=== PATIENT | female | born 1980 | race Caucasian/White ===

== ENCOUNTER 2024-09-19 08:38 | Inpatient (IN) | payer OTHER, BC, MEDICAID, SELFPAY ==
[2024-09-19] VITALS (34 sets, daily range): BP systolic 120–166; BP diastolic 80–116; PULSE 69–104; RESP 13–22; TEMP 37–37.2; O2SAT 91–100
--- NOTE | 2024-09-19 08:48 | W.ED.PSYCHS ---
Documented by User: [email or web address] Ulrich 09/19/24 12:48 HPI - Psych General: Chief Complaint: Psychiatric Symptoms Stated Complaint: alcohol withdrawal, hallucinations Time Seen by Provider: 09/19/24 12:28 Source: patient Mode of arrival: EMS Limitations: no limitations History of Present Illness: Patient is a 44-year-old female presents to ED today via EMS for evaluation of paranoia and visual/auditory hallucinations. Patient tells me she feels like people are after her. Reportedly drove to a gas station to get away from them. Patient states she stopped drinking alcohol approximately 6 days ago. She feels like she might be withdrawing. She has no known history of schizophrenia. Reported previous drug use but nothing recently. She was reportedly having conversations with people in the ambulance that were not there. Patient is a diabetic. She states she normally takes Lantus in the mornings as well as a sliding scale insulin. She has not had these medications in two days. According to EMS, her blood sugars were over 400 upon arrival. She states she has not slept in many days. MD complaint: altered mental status Onset (ago): day(s) Duration: constant Relieving factors: none Exacerbating factors: none Associated psychiatric symptoms: auditory hallucinations and visual hallucinations Associated symptoms: Reports auditory hallucinations and visual hallucinations; Deny depression, homicidal ideation or suicidal ideation Treatments prior to arrival: none Related Data Home Medications Medication Instructions Recorded Confirmed atenolol 50 mg tablet 50 mg PO DAILY 04/19/21 09/19/24 gabapentin 600 mg tablet 600 mg PO TID 04/19/21 09/19/24 atorvastatin 10 mg tablet 10 mg PO DAILY 09/19/24 09/19/24 insulin glargine 100 unit/mL (3 25 unit SUBCUT DAILY 09/19/24 09/19/24 mL) subcutaneous pen (Lantus Solostar U-100 Insulin) insulin lispro 100 unit/mL See Rx Instructions .Route .COMPLEX 09/19/24 09/19/24 subcutaneous pen (Humalog KwikPen (U-100) Insulin) lisinopril 2.5 mg tablet 2.5 mg PO DAILY 09/19/24 09/19/24 Allergies Allergy/AdvReac Type Severity Reaction Status Date / Time No Known Allergies Allergy Verified 05/18/21 09:20 Review of Systems Const: Denies: fever(s) or chills Card: Denies: chest pain, palpitations, lightheadedness or syncope Resp: Denies: dyspnea GI: Denies: abdominal pain, nausea, vomiting or diarrhea Skin/Breast: Denies: rash Neuro: Denies: headache(s) Psych: Reports: paranoia, visual hallucinations and auditory hallucinations; Denies: anxiety, depression, hopelessness, suicidal ideation or homicidal ideation PFS ED PFSH: Medical History Hepatitis C Type 4 with normal LFTs. Social History Smoking and tobacco/nicotine status: current every day tobacco/nicotine user Alcohol intake: current Alcohol intake frequency: holidays/special occasions only Adopted: No Marital status: Single Number of children: 1 service: No Physical Exam Const: COMMON NORMALS: no acute distress, average body habitus, patient oriented x3, no limitations, healthy appearing, alert and well nourished GENERAL APPEARANCE: cooperative ORIENTATION/CONSCIOUSNESS: Yes awake, Yes oriented to person, Yes oriented to place and Yes oriented to time Resp: COMMON NORMALS: normal respiratory effort and clear to auscultation bilaterally AUSCULTATION: clear to auscultation bilaterally Cardio: COMMON NORMALS: regular rate and regular rhythm RATE: regular rate RHYTHM: regular rhythm Neuro: COMMON NORMALS: patient oriented x3 SENSORIUM/ORIENTATION: Yes alert, Yes oriented to person, Yes oriented to place and Yes oriented to time Psych: COMMON NORMALS: mental status grossly normal, cooperative, normal affect, speech normal, activity/motor behavior normal, denies homicidal ideation and denies suicidal ideation APPEARANCE: Yes grossly normal ATTITUDE: Yes calm ACTIVITY/MOTOR BEHAVIOR: No psychomotor agitation SPEECH: Yes normal speech MOOD & AFFECT: Yes euthymic mood ATTENTION/CONCENTRATION: Yes attention grossly impaired and Yes concentration grossly impaired MEMORY/COGNITION: Yes memory grossly intact INSIGHT: Fair insight present (Psych) JUDGEMENT: Limited judgement present (Psych) Skin: COMMON NORMALS: no rashes or lesions noted GENERAL SKIN EXAM: no rashes or lesions noted Course Consultations: Consultation #1: Dr. Grant-accepts hospitalization Consultation #2: Dr. Dang-will consult on patient while in hospital Vital Signs: Vital signs: Vital Signs Temperature 98.9 F 09/19/24 08:39 Pulse Rate 77 09/19/24 11:23 Respiratory Rate 18 09/19/24 11:23 Blood Pressure 148/102 09/19/24 11:23 Pulse Oximetry 99 09/19/24 11:23 Oxygen Delivery Me thod Room Air 09/19/24 11:23 [facility] - Psych Medical Decision Making Patient is a 44-year-old female here for acute psychosis. She reportedly has no history of schizophrenia. She denies drug use. Her UDS is negative. She does report quitting alcohol approximately 6 days ago. On her blood work today she is anemic with hemoglobin of 8.3. She denies any black or tarry stools. She has no abdominal pain. Initial CMP with hypokalemia at 1.5 as well as hypocalcemia at 4.9. This was rechecked for accuracy. On repeat CMP her calcium has normalized but her potassium is still 1.9. She does have EKG changes. Her mag was 1.4. She was given IV replacement of these. Mild elevations of her LFTs consistent with her known alcohol abuse. Blood sugars were over 500 upon arrival. These are now down in the 200s after fluids and insulin. DDx includes metabolic encephalopathy, alcoholic withdrawal psychosis, new onset mental illness, etc. Spoke to Dr. De Oliveira and she will be medical admit with psych to consult. Chart reviewed and patient discussed with midlevel. Agree with assessment and plan. Differential Diagnosis Likely acute psychosis Medical Records I reviewed the patient's medical records. Lab Data I reviewed the patient's lab results. 09/19/24 10:04 09/19/24 11:44 Laboratory Results WBC 4.53 10^3/uL (3.29-11.43) 09/19/24 10:04 RBC 2.83 10^6/uL (3.85-5.65) L 09/19/24 10:04 Hgb 8.30 g/dL (11.27-16.99) L 09/19/24 10:04 Hct 25.1 % (36-47) L 09/19/24 10:04 MCV 88.7 fl (85-98) 09/19/24 10:04 MCH 29.3 pg (27-33) 09/19/24 10:04 MCHC 33.1 g/dL (30-55) 09/19/24 10:04 RDW 14.6 % (12.1-15.1) 09/19/24 10:04 Plt Count 84 10^3/cmm (157-399) L 09/19/24 10:04 MPV 11.1 fL (7.4-10.4) H 09/19/24 10:04 Neut % (Auto) 59.5 % 09/19/24 10:04 Lymph % (Auto) 28.9 % 09/19/24 10:04 [place] % (Auto) 10.4 % 09/19/24 10:04 Eos % (Auto) 0.4 % 09/19/24 10:04 Baso % (Auto) 0.4 % 09/19/24 10:04 Neut # (Auto) 2.69 10^3/uL (1.8-7.7) 09/19/24 10:04 Lymph # (Auto) 1.3 10^3/uL (0.8-4.8) 09/19/24 10:04 [place] # (Auto) 0.5 10^3/uL (0.2-0.9) 09/19/24 10:04 Eos # (Auto) 0.0 10^3/uL (0.0-0.8) 09/19/24 10:04 Baso # (Auto) 0.0 10^3/uL (0.0-0.1) 09/19/24 10:04 Nucleated RBC % (auto) 0 % 09/19/24 10:04 Nucleated RBCs # 0.0 /100WBC 09/19/24 10:04 PT 18.90 SECONDS (12.1-14.9) H 09/19/24 10:04 INR 1.53 (0.8-1.2) H 09/19/24 10:04 APTT 35.4 SECONDS (23.9-36.7) 09/19/24 10:04 Sodium 136 mmol/L (136-145) 09/19/24 11:44 Potassium 1.9 mmol/L (3.5-5.1) L* D 09/19/24 11:44 Chloride 92 mmol/L (98-107) L 09/19/24 11:44 Carbon Dioxide 29 mmol/L (22-29) 09/19/24 11:44 Anion Gap 16.9 (5-19) 09/19/24 11:44 BUN 10 mg/dL (6-20) 09/19/24 11:44 Creatinine 0.6 mg/dL (0.5-0.9) 09/19/24 11:44 GFR Calculation 109.6 mL/min (90-130) 09/19/24 11:44 Glucose 89 mg/dL (65-115) 09/19/24 11:44 POC Glucose 209 mg/dL (70-110) H 09/19/24 09:50 Calculated Osmolality 281 mOsm/kg (285-295) L 09/19/24 11:44 Calcium 8.7 mg/dL (8.5-10.5) 09/19/24 11:44 Phosphorus 1.7 mg/dL (2.5-4.5) L 09/19/24 11:44 Magnesium 1.4 mg/dL (1.7-2.3) L 09/19/24 11:44 Total Bilirubin 1.1 mg/dL (0.15-1.2) 09/19/24 11:44 AST 65 U/L (0-32) H 09/19/24 11:44 ALT 36 U/L (0-33) H 09/19/24 11:44 Alkaline Phosphatase 163 U/L (35-105) H 09/19/24 11:44 Troponin T Baseline 9 ng/L (0-10) 09/19/24 11:11 Total Protein 7.1 g/dL (6.6-8.7) D 09/19/24 11:44 Albumin 3.9 g/dL (3.5-5.2) 09/19/24 11:44 Globulin 3.2 g/dL (1.3-4.6) 09/19/24 11:44 HCG, Qual Negative (Negative) 09/19/24 10:04 Salicylates 0.7 mg/dL (3-10) L 09/19/24 10:04 Urine Opiates Screen Negative ng/mL (Negative) 09/19/24 08:52 Acetaminophen < 5.0 ug/mL (10-30) L 09/19/24 10:04 Ur Barbiturates Screen Negative ng/mL (Negative) 09/19/24 08:52 Ur Phencyclidine Scrn Negative ng/mL (Negative) 09/19/24 08:52 Ur Amphetamines Screen Negative ng/mL (Negative) 09/19/24 08:52 U Benzodiazepines Scrn Negative ng/mL (Negative) 09/19/24 08:52 Urine Cocaine Screen Negative ng/mL (Negative) 09/19/24 08:52 U Marijuana (THC) Screen Negative ng/mL (Negative) 09/19/24 08:52 Ethyl Alcohol < 10 mg/dL (0-10) 09/19/24 10:04 Serum Ketones Negative (Negative) 09/19/24 10:04 No radiology studies performed this visit Discharge Plan Discharge Patient Disposition: Admitted As Inpatient Clinical Impression: Acute psychosis, Chronic alcohol use, Hypomagnesemia, Hypokalemia Diabetes mellitus with hyperglycemia Qualifiers: Diabetes mellitus type: type 2 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: with termite control servicer use Qualified Code(s): E11.65 - Type 2 diabetes mellitus with hyperglycemia Condition: Stable Coding Level of Care Code ED Account Maintenance Representative for Chg Fwd Documented by User: Lauri De Oliveira DO 09/19/24 12:36 HPI - Psych General: Chief Complaint: Psychiatric Symptoms Stated Complaint: alcohol withdrawal, hallucinations Time Seen by Provider: 09/19/24 12:28 Related Data Home Medications Medication Instructions Recorded Confirmed atenolol 50 mg tablet 50 mg PO DAILY 04/19/21 09/19/24 gabapentin 600 mg tablet 600 mg PO TID 04/19/21 09/19/24 atorvastatin 10 mg tablet 10 mg PO DAILY 09/19/24 09/19/24 insulin glargine 100 unit/mL (3 25 unit SUBCUT DAILY 09/19/24 09/19/24 mL) subcutaneous pen (Lantus Solostar U-100 Insulin) insulin lispro 100 unit/mL See Rx Instructions .Route .COMPLEX 09/19/24 09/19/24 subcutaneous pen (Humalog KwikPen (U-100) Insulin) lisinopril 2.5 mg tablet 2.5 mg PO DAILY 09/19/24 09/19/24 Allergies Allergy/AdvReac Type Severity Reaction Status Date / Time No Known Allergies Allergy Verified 05/18/21 09:20 PFS ED PFS: Medical History Hepatitis C Type 4 with normal LFTs. Social History Smoking and tobacco/nicotine status: current every day tobacco/nicotine user Alcohol intake: current Alcohol intake frequency: holidays/special occasions only Adopted: No Marital status: Single Number of children: 1 service: No Course Vital Signs: Vital signs: Vital Signs Temperature 98.9 F 09/19/24 08:39 Pulse Rate 77 09/19/24 11:23 Respiratory Rate 18 09/19/24 11:23 Blood Pressure 148/102 09/19/24 11:23 Pulse Oximetry 99 09/19/24 11:23 Oxygen Delivery Me thod Room Air 09/19/24 11:23 MDM - Psych Medical Decision Making Patient is a 44-year-old female here for acute psychosis. She reportedly has no history of schizophrenia. She denies drug use. Her UDS is negative. She does report quitting alcohol approximately 6 days ago. On her blood work today she is anemic with hemoglobin of 8.3. She denies any black or tarry stools. Initial CMP with hypokalemia at 1.5 as well as hypocalcemia at 4.9. This was rechecked for accuracy. On repeat CMP her calcium has normalized but her potassium is still 1.9. She does have EKG changes. Her mag was 1.4. She was given IV replacement of these. Mild elevations of her LFTs consistent with her known alcohol abuse. Blood sugars were over 500 upon arrival. These are now down in the 200s after fluids and insulin. DDx includes metabolic encephalopathy, alcoholic withdrawal psychosis, new onset mental illness, etc. Spoke to Dr. De Oliveira and she will be medical admit with psych to consult. Chart reviewed and patient discussed with midlevel. Agree with assessment and plan. Lab Data 09/19/24 10:04 09/19/24 11:44 Laboratory Results WBC 4.53 10^3/uL (3.29-11.43) 09/19/24 10:04 RBC 2.83 10^6/uL (3.85-5.65) L 09/19/24 10:04 Hgb 8.30 g/dL (11.27-16.99) L 09/19/24 10:04 Hct 25.1 % (36-47) L 09/19/24 10:04 MCV 88.7 fl (85-98) 09/19/24 10:04 MCH 29.3 pg (27-33) 09/19/24 10:04 MCHC 33.1 g/dL (30-55) 09/19/24 10:04 RDW 14.6 % (12.1-15.1) 09/19/24 10:04 Plt Count 84 10^3/cmm (157-399) L 09/19/24 10:04 MPV 11.1 fL (7.4-10.4) H 09/19/24 10:04 Neut % (Auto) 59.5 % 09/19/24 10:04 Lymph % (Auto) 28.9 % 09/19/24 10:04 [place] % (Auto) 10.4 % 09/19/24 10:04 Eos % (Auto) 0.4 % 09/19/24 10:04 Baso % (Auto) 0.4 % 09/19/24 10:04 Neut # (Auto) 2.69 10^3/uL (1.8-7.7) 09/19/24 10:04 Lymph # (Auto) 1.3 10^3/uL (0.8-4.8) 09/19/24 10:04 [place] # (Auto) 0.5 10^3/uL (0.2-0.9) 09/19/24 10:04 Eos # (Auto) 0.0 10^3/uL (0.0-0.8) 09/19/24 10:04 Baso # (Auto) 0.0 10^3/uL (0.0-0.1) 09/19/24 10:04 Nucleated RBC % (auto) 0 % 09/19/24 10:04 Nucleated RBCs # 0.0 /100WBC 09/19/24 10:04 PT 18.90 SECONDS (12.1-14.9) H 09/19/24 10:04 INR 1.53 (0.8-1.2) H 09/19/24 10:04 APTT 35.4 SECONDS (23.9-36.7) 09/19/24 10:04 Sodium 136 mmol/L (136-145) 09/19/24 11:44 Potassium 1.9 mmol/L (3.5-5.1) L* D 09/19/24 11:44 Chloride 92 mmol/L (98-107) L 09/19/24 11:44 Carbon Dioxide 29 mmol/L (22-29) 09/19/24 11:44 Anion Gap 16.9 (5-19) 09/19/24 11:44 BUN 10 mg/dL (6-20) 09/19/24 11:44 Creatinine 0.6 mg/dL (0.5-0.9) 09/19/24 11:44 GFR Calculation 109.6 mL/min (90-130) 09/19/24 11:44 Glucose 89 mg/dL (65-115) 09/19/24 11:44 POC Glucose 209 mg/dL (70-110) H 09/19/24 09:50 Calculated Osmolality 281 mOsm/kg (285-295) L 09/19/24 11:44 Calcium 8.7 mg/dL (8.5-10.5) 09/19/24 11:44 Phosphorus 1.7 mg/dL (2.5-4.5) L 09/19/24 11:44 Magnesium 1.4 mg/dL (1.7-2.3) L 09/19/24 11:44 Total Bilirubin 1.1 mg/dL (0.15-1.2) 09/19/24 11:44 AST 65 U/L (0-32) H 09/19/24 11:44 ALT 36 U/L (0-33) H 09/19/24 11:44 Alkaline Phosphatase 163 U/L (35-105) H 09/19/24 11:44 Troponin T Baseline 9 ng/L (0-10) 09/19/24 11:11 Total Protein 7.1 g/dL (6.6-8.7) D 09/19/24 11:44 Albumin 3.9 g/dL (3.5-5.2) 09/19/24 11:44 Globulin 3.2 g/dL (1.3-4.6) 09/19/24 11:44 HCG, Qual Negative (Negative) 09/19/24 10:04 Salicylates 0.7 mg/dL (3-10) L 09/19/24 10:04 Urine Opiates Screen Negative ng/mL (Negative) 09/19/24 08:52 Acetaminophen < 5.0 ug/mL (10-30) L 09/19/24 10:04 Ur Barbiturates Screen Negative ng/mL (Negative) 09/19/24 08:52 Ur Phencyclidine Scrn Negative ng/mL (Negative) 09/19/24 08:52 Ur Amphetamines Screen Negative ng/mL (Negative) 09/19/24 08:52 U Benzodiazepines Scrn Negative ng/mL (Negative) 09/19/24 08:52 Urine Cocaine Screen Negative ng/mL (Negative) 09/19/24 08:52 U Marijuana (THC) Screen Negative ng/mL (Negative) 09/19/24 08:52 Ethyl Alcohol < 10 mg/dL (0-10) 09/19/24 10:04 Serum Ketones Negative (Negative) 09/19/24 10:04 Discharge Plan Discharge Patient Disposition: Admitted As Inpatient Clinical Impression: Acute psychosis, Chronic alcohol use, Hypomagnesemia, Hypokalemia Diabetes mellitus with hyperglycemia Qualifiers: Diabetes mellitus type: type 2 Diabetes mellitus detention insulin use: with termite control servicer use Qualified Code(s): E11.65 - Type 2 diabetes mellitus with hyperglycemia Condition: Stable Coding Level of Care Code ED Account Maintenance Representative for Hunter Champion
[2024-09-19 08:59] LABS: Glucose Point of Care 514 mg/dL (70-110)
[2024-09-19 09:09] LABS: Amphetamines Screen Urine Negative (Negative); Barbiturates Screen Urine Negative (Negative); Benzodiazepines Screen Urine Negative (Negative); Cocaine Screen Urine Negative (Negative); Opiate Screen Urine Negative (Negative); PCP Screen Urine Negative (Negative); THC Screen Urine Negative (Negative)
[2024-09-19] MEDS: sodium chloride 0.9% 1,000 ML 999 ML IV (09:09)
[2024-09-19] MEDS: insulin regular-human 100 units/1 mL 8 UNIT IVP (09:11)
[2024-09-19 09:52] LABS: Glucose Point of Care 209 mg/dL (70-110)
[2024-09-19 10:16] LABS: Basophils % 0.4 %; Eosinophils % 0.4 %; Hematocrit 25.1 % (36-47); Lymphocytes # 1.3 10^3/uL (0.8-4.8); Lymphocytes % 28.9 %; Mean Corpuscular HGB Conc 33.1 g/dL (30-55); Mean Corpuscular Hemoglobin 29.3 pg (27-33); Mean Corpuscular Volume 88.7 fl (85-98); Mean Platelet Volume 11.1 fL (7.4-10.4); Monocytes # 0.5 10^3/uL (0.2-0.9); Monocytes % 10.4 %; Neutrophils # 2.69 10^3/uL (1.8-7.7); Neutrophils % 59.5 %; Nucleated Red Blood Cells % 0 %; Platelet Count 84 10^3/cmm (157-399); Red Blood Count 2.83 10^6/uL (3.85-5.65); Red Cell Distribution Width 14.6 % (12.1-15.1); White Blood Count 4.53 10^3/uL (3.29-11.43)
[2024-09-19 10:25] LABS: HCG, Serum Qual Negative (Negative); Ketone (Acetest) Serum Negative (Negative)
[2024-09-19 10:28] LABS: Alanine Aminotransferase 21 U/L (0-33); Albumin Level 2.3 g/dL (3.5-5.2); Alkaline Phosphatase 88 U/L (35-105); Anion Gap 11.5 (5-19); Aspartate Amino Transferase 39 U/L (0-32); Blood Urea Nitrogen 7 mg/dL (6-20); Carbon Dioxide 18 mmol/L (22-29); Chloride 114 mmol/L (98-107); Creatinine Clr Calc Pharmacy 222.8537; Globulin 1.6 g/dL (1.3-4.6); Glucose 91 mg/dL (65-115); Osmolality Calculated 292 mOsm/kg (285-295); Salicylate 0.7 mg/dL (3-10); Sodium 142 mmol/L (136-145); Total Bilirubin 0.6 mg/dL (0.15-1.2); Total Protein 3.9 g/dL (6.6-8.7)
[2024-09-19 10:29] LABS: Acetaminophen < 5.0 ug/mL (10-30); Alcohol Level < 10 mg/dL (0-10)
[2024-09-19 10:30] LABS: Calcium 4.9 mg/dL (8.5-10.5); Potassium 1.5 mmol/L (3.5-5.1)
--- NOTE | 2024-09-19 10:38 | PC.NURSE ---
96 hr rights reviewed with patient @[id number] with assistance of [facility] drug abuse resistance education officer Raymon Perry All education reviewed. No verbalized questions or concerns at this time. Copy of 96 hr rights left @bedside with patient. Patient denied any snacks or beverages at this time.
--- NOTE | 2024-09-19 10:42 | ECG_ITS ---
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 Measurements Intervals [place] Rate: 63 P: 46 CT: 155 QRS: 44 QRSD: 101 T: -12 QT: 359 QTc: 368 Interpretive Statements SINUS RHYTHM ST DEVIATION AND MODERATE T-WAVE ABNORMALITY, CONSIDER ANTERIOR ISCHEMIA No previous ECG available for comparison Electronically Signed On 09-19-2024 12:22:07 CDT by Rosales Louise M.D. [email or web address]
[2024-09-19] MEDS: potassium chloride ER 20 mEq Tablet 40 MEQ PO (11:21)
[2024-09-19 11:39] LABS: Troponin(5th) Baseline 9 ng/L (0-10)
[2024-09-19 12:08] LABS: Alanine Aminotransferase 36 U/L (0-33); Albumin Level 3.9 g/dL (3.5-5.2); Alkaline Phosphatase 163 U/L (35-105); Anion Gap 16.9 (5-19); Aspartate Amino Transferase 65 U/L (0-32); Blood Urea Nitrogen 10 mg/dL (6-20); Calcium 8.7 mg/dL (8.5-10.5); Carbon Dioxide 29 mmol/L (22-29); Chloride 92 mmol/L (98-107); Creatinine Clr Calc Pharmacy 111.4269; Globulin 3.2 g/dL (1.3-4.6); Glomerular Filtration Rate 109.6 mL/min (90-130); Glucose 89 mg/dL (65-115); Magnesium 1.4 mg/dL (1.7-2.3); Osmolality Calculated 281 mOsm/kg (285-295); Phosphorus 1.7 mg/dL (2.5-4.5); Sodium 136 mmol/L (136-145); Total Bilirubin 1.1 mg/dL (0.15-1.2); Total Protein 7.1 g/dL (6.6-8.7)
[2024-09-19 12:09] LABS: Potassium 1.9 mmol/L (3.5-5.1)
[2024-09-19] MEDS: magnesium sulfate premix 1 GM/100 ML PIGGYBACK IV (12:29)
[2024-09-19] MEDS: lidocaine 1% 5 ML in potassium chloride premix 100 ML 26.25 ML IV (12:34)
[2024-09-19 12:36] LABS: INR 1.53 (0.8-1.2); Partial Thromboplastin Time 35.4 SECONDS (23.9-36.7)
--- NOTE | 2024-09-19 12:45 | ECG_ITS ---
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 Measurements Intervals [place] Rate: 75 P: 58 SC: 157 QRS: 59 QRSD: 98 T: 12 QT: 405 QTc: 453 Interpretive Statements SINUS RHYTHM ST DEVIATION AND MODERATE T-WAVE ABNORMALITY, CONSIDER ANTEROLATERAL ISCHEMIA Compared to ECG 09/19/2024 10:42:05 No significant changes Electronically Signed On 09-20-2024 13:51:25 CDT by Rosales Louise M.D. [email or web address]
--- NOTE | 2024-09-19 13:29 | PC.NURSE ---
Arrived from ED, belongings placed in locker 5
[2024-09-19] MEDS: multivitamin therapeutic Tablet 1 TAB PO (13:40)
[2024-09-19] MEDS: thiamine 100 mg Tablet PO (13:40)
[2024-09-19] MEDS: folic acid 1 mg Tablet PO (13:40)
[2024-09-19 14:09] LABS: Troponin 5 2HR 13.05 ng/L (0-10); Troponin 5 2HR Delta 4.05 ABS# (0-10)
[2024-09-19] MEDS: gabapentin 300 mg Capsule 600 MG PO ×2 (16:05→20:01)
[2024-09-19] MEDS: nicotine 14 mg Patch 1 PATCH TRANSDERMA (16:05)
--- NOTE | 2024-09-19 16:54 | ECG_ITS ---
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 Measurements Intervals [place] Rate: 67 P: 46 RI: 152 QRS: 34 QRSD: 106 T: 1 QT: 481 QTc: 508 Interpretive Statements SINUS RHYTHM ST DEVIATION AND MODERATE T-WAVE ABNORMALITY, CONSIDER ANTEROLATERAL ISCHEMIA Compared to ECG 09/19/2024 12:45:58 No significant changes Electronically Signed On 09-20-2024 13:50:24 CDT by Rosales Louise M.D. [email or web address]
--- NOTE | 2024-09-19 17:47 | PM.HP ---
Providers/Chief Complaint Admitting Physician: Kyrie Trevino DO Chief Complaint: alcohol withdrawal, hallucinations History of Present Illness Nicky Saini is a 44 year old female with past medical history of substance abuse, alcohol abuse, HLD, diabetes, hypertension, who presented to the ER with complaints of hallucinations. Reports that she stopped drinking 2 to 3 days ago, and says that she has started having severely hallucinations. She was wandering around town, confused, and says that her balance has been very unsteady. She tells me she has a past history of hepatitis C. Says that she has been drinking about 20 shots a day for the last several months, and that she has used illicit drugs multiple times in the past. She was recently incarcerated and released, and says that she has been drinking to avoid substance use. In the ER, she Was noted to have elevated blood pressures into the 140/110 range consistently throughout the monitoring period. Her labs showed an anemia to 8.3, platelets at 84. Her sugars were initially noted into the 500 range, but they have improved to the 200s. She had multiple electrolyte deficiencies including a low phosphorus at 1.7, a low magnesium to 1.4, and a critical potassium level of 1.9. She did receive oral and IV potassium while in the ER. She was started on folic acid supplementation, magnesium was replaced, potassium was also replaced, and she received thiamine. She did receive NS bolus as well. Review of Systems General: Reports: 10 or more systems reviewed and unremarkable except in HPI and below Medications/Allergies Home Medications Medication Instructions Recorded Confirmed Last Taken Type atenolol 50 mg tablet 50 mg PO DAILY 04/19/21 09/19/24 09/18/24 History gabapentin 600 mg tablet 600 mg PO TID 04/19/21 09/19/24 09/18/24 History atorvastatin 10 mg tablet 10 mg PO DAILY 09/19/24 09/19/24 09/18/24 History insulin glargine 100 unit/mL (3 25 unit SUBCUT DAILY 09/19/24 09/19/24 Unknown History mL) subcutaneous pen (Lantus Solostar U-100 Insulin) insulin lispro 100 unit/mL See Rx Instructions .Route .COMPLEX 09/19/24 09/19/24 Unknown History subcutaneous pen (Humalog KwikPen (U-100) Insulin) lisinopril 2.5 mg tablet 2.5 mg PO DAILY 09/19/24 09/19/24 Unknown History Allergies Allergy/AdvReac Type Severity Reaction Status Date / Time No Known Allergies Allergy Verified 05/18/21 09:20 PFSH Acute PFSH: Medical History Hepatitis C Type 4 with normal LFTs. Social History Smoking and tobacco/nicotine status: current every day tobacco/nicotine user Alcohol intake: current Alcohol intake frequency: holidays/special occasions only Adopted: No Marital status: Single Number of children: 1 service: No Vitals/I&O/Wt Last Vital Signs Temp 98.9 F 09/19/24 08:39 Pulse 69 09/19/24 17:30 Resp 18 09/19/24 17:30 BP 144/98 09/19/24 17:30 Pulse Ox 100 09/19/24 17:30 O2 Del Method Room Air 09/19/24 13:59 Weight last 48 hrs Weight 131 lb Weight 130 lb Physical Exam Narrative: General: Cooperative patient in no apparent distress. Well developed. HEENT: Normocephalic, Atraumatic. External ears normal. Nasal passages patent without drainage. MMM. Heart: Tachycardic with regular rhythm. Resp: LCTA. No respiratory distress, no use of accessory muscles. Abd: Soft, non-tender. Non-distended. Extremities: No edema. Skin: No rash or lesions on exposed areas. Neuro: No focal motor or sensory disruptions. Speech is very pressured. 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 Will admit to ICU for monitoring and treatment. Dr. Dang was consulted from neuropsych and has agreed to see the patient once she is stable. EKG did show peaked T's and ST-T changes consistent with hypokalemia. Her potassium is at 1.9. This was replaced and we will recheck. Multiple other electrolyte deficiencies were noted including low phosphate, low magnesium, anemia. Patient recheck in the morning. She does have a history of hepatitis C. Thrombocytopenia with platelet count of 84. Hold on anticoagulation. Will start SCDs or ankle pumps for VTE prophylaxis. Sugars were elevated on admission. We will start hyperglycemic management protocol. CIWA protocol. Her blood pressure has improved after admission. We will continue to monitor this and may need to add additional medications if her pressures remain elevated and labile. Will replace thiamine and continue other vitamin supplementation as indicated. One-on-one sitter. Telemetry. GI prophylaxis with Protonix daily. Continue other home medications for chronic illnesses. Code Status: Full IVF: None DVT PPx: SCDs GI PPx: Protonix ABx: None Diet: Regular Discharge plan: To be determined Attestations Medical Necessity Statement*: Will need inpatient hospital stay for vitamin and electrolyte replacement, alcohol withdrawal protocol, correction of hyperglycemia, monitoring for improvement of psychosis, and neuropsychiatric care. Coding Level of Care Code Acute Code for Chg Fwd Moderate MDM includes number and complexity of problems actively addressed during encounter, amount and/or complexity of data reviewed/ordered and described risk of complication, morbidity or mortality of management as documented Diagnoses Acute psychosis F23 Chronic alcohol use F10.90 Diabetes mellitus with hyperglycemia E11.65; Z79.4 Diabetes mellitus assisted insulin use: with laborer marine terminal use Diabetes mellitus type: type 2 Chronic hepatitis C without hepatic coma B18.2 Viral hepatitis chronicity: chronic Hepatic coma status: without hepatic coma Hypomagnesemia E83.42 Hypokalemia E87.6 Hypophosphatemia E83.39 Elevated liver enzymes R74.8 Dehydration E86.0 Thrombocytopenia D69.6
[2024-09-19 17:59] LABS: Troponin 5 6HR 11.63 ng/L (0-10); Troponin 5 6HR Delta 2.63 ng/L (0-12)
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
[2024-09-19 18:26] LABS: Glucose Point of Care 366 mg/dL (70-110)
[2024-09-19] MEDS: insulin lispro 100 unit/1 mL SUBCUT ×2 (18:33→20:01)
[2024-09-19 18:43] LABS: Anion Gap 18.6 (5-19); Blood Urea Nitrogen 11 mg/dL (6-20); Calcium 8.4 mg/dL (8.5-10.5); Carbon Dioxide 23 mmol/L (22-29); Chloride 90 mmol/L (98-107); Creatinine Clr Calc Pharmacy 134.1324; Glomerular Filtration Rate 135.3 mL/min (90-130); Glucose 323 mg/dL (65-115); Magnesium 1.7 mg/dL (1.7-2.3); Osmolality Calculated 280 mOsm/kg (285-295); Sodium 129 mmol/L (136-145)
[2024-09-19 18:47] LABS: Potassium 2.6 mmol/L (3.5-5.1)
[2024-09-19] MEDS: potassium phosphate (mEq K) 40 MEQ in sodium chloride 0.9% (100 ml) 100 ML 27.27 MEQ IV (19:23)
[2024-09-19 19:58] LABS: Glucose Point of Care 355 mg/dL (70-110)
[2024-09-19] MEDS: LORazepam 2 mg Tablet PO (20:01)
[2024-09-19] MEDS: LORazepam 2 mg/mL INJ 1 mL IVP ×2 (21:22→22:17)
[2024-09-19] MEDS: dexmedeTOMIDine 0.9 % NaCL 400 MCG/100 ML PREMIX IV (22:01)
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
--- NOTE | 2024-09-19 22:56 | P.PN_ITS ---
Subjective 2 Subjective: Patient with severe agitation and kicking at swearing and yelling at medical staff including nurses as well as security staff trying to protect her from injuring herself or others or discontinuing her IV. I had voice ordered 2 mg IV lorazepam which she received 10 minutes prior to this bedside evaluation. I ordered 50 mcg Precedex push in addition to the drip already ordered and infusing. Vitals/I&O/Wt Last Vital Signs Temp 98.6 F 09/19/24 19:38 Pulse 94 09/19/24 20:00 Resp 18 09/19/24 20:00 BP 135/88 09/19/24 19:00 Pulse Ox 100 09/19/24 20:00 O2 Del Method Room Air 09/19/24 20:00 09/19/24 09/19/24 09/19/24 06:59 14:59 22:59 Intake Total 213.495 / 213.495 Balance 213.495 / 213.495 Weight last 48 hrs Weight 59.421 kg Weight 58.967 kg Physical Exam 2 Narrative: General Well-developed well-nourished agitated female yelling at everybody to get back and kicking with her feet but not very accurately. Precedex was pushed and 2-1/2 minutes after she had intermittent periods of drowsiness. 5 minutes later she was asleep. Evaluated 20 minutes later if she is sleeping and snoring pupils are equal. CV regular rate and rhythm lungs clear to auscultation bilaterally she does not easily arouse at this time. Data 09/19/24 10:04 09/19/24 17:35 A&P Assessment and plan (1) Alcohol withdrawal delirium, acute, hyperactive: We lowered the Precedex to the starting dose and will monitor her for arousal goal for arousable patient that is sleeping. Continue benzos as needed. Attestations 2 Medical Necessity Statement*: Anticipate greater than 2 midnights in the hospital Coding Level of Care Code Critical Care >/= 30 minutes Diagnoses Alcohol withdrawal delirium, acute, hyperactive F10.931 Time Spent (min) 30
[2024-09-20] VITALS (28 sets, daily range): BP systolic 89–155; BP diastolic 56–111; PULSE 66–107; RESP 13–22; TEMP 36.6–36.8; O2SAT 89–100
--- NOTE | 2024-09-20 01:22 | PC.NURSE ---
Patient's sister, Hoda called at the beginning of the shift wanting to speak with the patient. Cordless phone was given to the patient and she spoke to her sister for about 10 minutes. Patient's sister keeps calling wanting to speak to her again and patient currently is sleeping. Patients's sister is demanding to speak to her but was told by this nurse that the patient is asleep and it is important to her care that she gets to rest.
--- NOTE | 2024-09-20 01:27 | PC.NURSE ---
Patient's Aunt, Daniela Underwood called to get an update. This nurse updated her on patient's condition and treatment plan for the night. All questions were answered.
[2024-09-20] MEDS: LORazepam 2 mg/mL INJ 1 mL IVP ×2 (04:21→18:36)
[2024-09-20 06:19] LABS: Alanine Aminotransferase 34 U/L (0-33); Albumin Level 3.2 g/dL (3.5-5.2); Alkaline Phosphatase 120 U/L (35-105); Anion Gap 14.2 (5-19); Aspartate Amino Transferase 78 U/L (0-32); Blood Urea Nitrogen 10 mg/dL (6-20); Carbon Dioxide 27 mmol/L (22-29); Chloride 99 mmol/L (98-107); Creatinine Clr Calc Pharmacy 135.8956; Globulin 2.4 g/dL (1.3-4.6); Glomerular Filtration Rate 135.3 mL/min (90-130); Glucose 178 mg/dL (65-115); Magnesium 1.6 mg/dL (1.7-2.3); Osmolality Calculated 289 mOsm/kg (285-295); Sodium 138 mmol/L (136-145); Total Bilirubin 0.6 mg/dL (0.15-1.2); Total Protein 5.6 g/dL (6.6-8.7)
[2024-09-20 07:06] LABS: Basophils % 0.6 %; Eosinophils # 0.1 10^3/uL (0.0-0.8); Eosinophils % 2.1 %; Hematocrit 33.8 % (36-47); Lymphocytes # 1.6 10^3/uL (0.8-4.8); Lymphocytes % 48.1 %; Mean Corpuscular HGB Conc 33.7 g/dL (30-55); Mean Corpuscular Hemoglobin 29.3 pg (27-33); Mean Corpuscular Volume 86.9 fl (85-98); Mean Platelet Volume 10.5 fL (7.4-10.4); Monocytes # 0.4 10^3/uL (0.2-0.9); Monocytes % 10.9 %; Neutrophils # 1.29 10^3/uL (1.8-7.7); Nucleated Red Blood Cells % 0 %; Platelet Count 96 10^3/cmm (157-399); Red Blood Count 3.89 10^6/uL (3.85-5.65); Red Cell Distribution Width 15.1 % (12.1-15.1); White Blood Count 3.39 10^3/uL (3.29-11.43)
[2024-09-20 07:09] LABS: Potassium 2.2 mmol/L (3.5-5.1)
[2024-09-20 07:42] LABS: Glucose Point of Care 212 mg/dL (70-110)
[2024-09-20 07:47] LABS: Phosphorus 4.3 mg/dL (2.5-4.5)
[2024-09-20] MEDS: magnesium sulfate premix 2 GM/50 ML PIGGYBACK IV (07:52)
[2024-09-20] MEDS: lidocaine 1% 5 ML in potassium chloride premix 100 ML 52.5 ML IV (07:57)
[2024-09-20] MEDS: folic acid 1 mg Tablet PO (08:07)
[2024-09-20] MEDS: nicotine 14 mg Patch 1 PATCH TRANSDERMA (08:07)
[2024-09-20] MEDS: multivitamin therapeutic Tablet 1 TAB PO (08:07)
[2024-09-20] MEDS: gabapentin 300 mg Capsule 600 MG PO ×3 (08:07→20:17)
[2024-09-20] MEDS: pantoprazole DR 40 mg Tablet PO (08:07)
[2024-09-20] MEDS: thiamine 100 mg Tablet PO (08:07)
[2024-09-20] MEDS: insulin lispro 100 unit/1 mL SUBCUT ×3 (08:08→18:00)
[2024-09-20 11:15] LABS: Glucose Point of Care 155 mg/dL (70-110)
[2024-09-20 12:25] LABS: Basophils % 0.7 %; Eosinophils # 0.1 10^3/uL (0.0-0.8); Eosinophils % 1.9 %; Hematocrit 34.7 % (36-47); Lymphocytes # 1.7 10^3/uL (0.8-4.8); Lymphocytes % 41.2 %; Mean Corpuscular HGB Conc 33.7 g/dL (30-55); Mean Corpuscular Hemoglobin 29.5 pg (27-33); Mean Corpuscular Volume 87.4 fl (85-98); Monocytes # 0.5 10^3/uL (0.2-0.9); Monocytes % 12.3 %; Neutrophils % 43.7 %; Nucleated Red Blood Cells % 0 %; Platelet Count 110 10^3/cmm (157-399); Red Blood Count 3.97 10^6/uL (3.85-5.65); White Blood Count 4.13 10^3/uL (3.29-11.43)
[2024-09-20] MEDS: folic acid 1 MG, multivitamin inj 10 ML, thiamine 100 MG in sodium chloride 0.9% 1,000 ML 252.8 MG IV (12:38)
[2024-09-20 12:39] LABS: Estmated Average Glucose 255; Hemoglobin A1C 10.5 % (4.0-6.0)
[2024-09-20] MEDS: thiamine 500 MG in sodium chloride 0.9% (100 ml) 100 ML 210 MG IV (12:42)
[2024-09-20 12:44] LABS: HIV 1 & 2 Antigen Non-Reactive (Non-Reactiv)
[2024-09-20 12:45] LABS: Anion Gap 11.3 (5-19); Blood Urea Nitrogen 11 mg/dL (6-20); Calcium 8.9 mg/dL (8.5-10.5); Carbon Dioxide 30 mmol/L (22-29); Chloride 100 mmol/L (98-107); Creatinine Clr Calc Pharmacy 135.8956; Glomerular Filtration Rate 135.3 mL/min (90-130); Glucose 125 mg/dL (65-115); HIV 1 & 2 Antibody Non-Reactive (Non-Reactiv); Osmolality Calculated 289 mOsm/kg (285-295); Sodium 139 mmol/L (136-145)
[2024-09-20 12:47] LABS: Potassium 2.3 mmol/L (3.5-5.1)
[2024-09-20 13:05] LABS: Hepatitis A Antibody IgM Non-Reactive (Nonreactive); Hepatitis B Core AB, Total Non-Reactive (Nonreactive); Hepatitis B Surface AB < 3.5 (11.5-1000); Hepatitis B Surface Antigen Non-Reactive (Nonreactive); Hepatitis C Virus Antibody Reactive (Nonreactive)
[2024-09-20 13:11] LABS: Iron 36 ug/dL (37-145); Percent Saturation 18.2 % (20-50); Thyroid Stimulating Hormone 1.12 uIU/mL (0.27-4.20); Total Iron Binding Capacity 197 mcg/dl; Unsaturated Iron Binding 161 ug/dL (112-347)
[2024-09-20] MEDS: OLANZapine 5 mg ODT PO ×2 (13:29→17:57)
[2024-09-20] MEDS: potassium chloride ER 20 mEq Tablet 80 MEQ PO ×2 (13:29→14:50)
--- NOTE | 2024-09-20 14:55 | P.PN_ITS ---
Subjective 2 Subjective: Hospital course, labs appreciated. Overnight patient had episodes of hallucination and was wandering around in the unit for which she was given Ativan. After Ativan as patient did not calm down she was started on a Precedex drip. Today morning examination patient is moving at bed, able to have some conversation but not following directions. Just prior to examination patient was sitting up in talking to the sitter. Currently she is sleeping. Has remained hemodynamically stable and afebrile. Did have 1 episode of soft blood pressures earlier in the morning. Vitals/I&O/Wt Last Vital Signs Temp 97.9 F 09/20/24 08:00 Pulse 98 09/20/24 14:00 Resp 16 09/20/24 14:00 BP 122/78 09/20/24 14:00 Pulse Ox 94 09/20/24 14:00 O2 Del Method Room Air 09/20/24 14:00 09/19/24 09/20/24 09/20/24 22:59 06:59 14:59 Intake Total 215.948 / 215.227 243.5206 / 346.6596 1014.383 / 1014.383 Output Total 600 / 600 Balance 215.948 / 215.948 -469.2884 / -253.3404 1014.383 / 1014.383 Weight last 48 hrs Weight 61.326 kg Weight 59.421 kg Weight 58.967 kg Physical Exam 2 Narrative: General: In no acute distress, lethargic, wakes up to have mild conversation, mumbling, AO x 1 to 2 HEENT: PERRLA, pupils bilaterally equal and reactive Chest: Normal vesicular breath sounds, no added sounds, equal good air entry bilaterally CVS: S1-S2 regular, no murmurs, no tachycardia, no gallops, no rubs Abdomen: Soft, nontender, no organomegaly, bowel sounds present Neuro: No facial deficit, moving all limbs Const: COMMON NORMALS: no acute distress and average body habitus GENERAL APPEARANCE: cooperative, comfortable and lethargic ORIENTATION/CONSCIOUSNESS: Yes lethargic Neuro: SENSORIUM/ORIENTATION: Yes lethargic Data 09/20/24 12:08 09/20/24 12:08 A&P Assessment and plan (1) Metabolic encephalopathy: Most likely in setting of alcohol withdrawal. Patient has history of chronic alcohol use and dependence. Does have mild transaminitis. Will check ammonia levels. Less likelihood in setting of electrolyte abnormalities. Patient has hypokalemia and hypomagnesemia. Hypophosphatemia resolved. No anion gap. She does have hyperglycemia. DKA unlikely. Urine drug screen appreciated. Currently on Precedex drip. Will wean accordingly. Concerns for psychosis overnight. Zyprexa Zydis 5 mg p.o. twice daily. Psychiatry recommendations awaited. Will change treatment as per their recommendations. Patient might need inpatient treatment with psychiatric team. Should be medically cleared to transferred once electrolyte abnormalities resolved hepatic encephalopathy ruled out. (2) Alcohol withdrawal delirium, acute, hyperactive: [facility] protocol. Seizure precautions. (3) Alcohol use disorder, severe, dependence: (4) Acute psychosis: (5) History of panic disorder: (6) Hypokalemia: Severe hypokalemia. Replace with 80 mg every hour for 2 doses. Replace magnesium 2 g IV stat. Repeat BMP in afternoon. (7) Hypomagnesemia: (8) Diabetes mellitus with hyperglycemia: No concerns for DKA. No anion gap. A1c. Start on insulin sliding scale Q6 hourly. 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 Cannot rule out alcoholic hepatitis. Check hepatitis panel, HIV. (10) Hepatitis C: Qualifiers: Viral hepatitis chronicity: chronic Hepatic coma status: without hepatic coma Qualified Code(s): B18.2 - Chronic viral hepatitis C Plan Thrombocytopenia: Chronic most likely in setting of liver dysfunction. Improving. Full code N.p.o. One-to-one sitter Protonix for PUD prophylaxis Heparin 5000 every 12 hourly for DVT prophylaxis Attestations 2 Medical Necessity Statement*: Requires further hospitalization for management of acute metabolic encephalopathy with psychosis in setting of chronic alcohol use, transaminitis, severe hyperglycemia without DKA Diagnoses Metabolic encephalopathy G93.41 Alcohol withdrawal delirium, acute, hyperactive F10.931 Alcohol use disorder, severe, dependence F10.20 Acute psychosis F23 History of panic disorder Z86.59 Hypokalemia E87.6 Hypomagnesemia E83.42 Diabetes mellitus with hyperglycemia E11.65; Z79.4 Diabetes mellitus [facility] insulin use: with [facility] use Diabetes mellitus type: type 2 Elevated liver enzymes R74.8 Chronic hepatitis C without hepatic coma B18.2 Viral hepatitis chronicity: chronic Hepatic coma status: without hepatic coma
[2024-09-20] MEDS: heparin 5,000 unit/mL INJ 1 mL 5000 UNIT SUBCUT (15:24)
[2024-09-20] MEDS: nicotine 2 mg Gum 4 MG BUCCAL ×3 (15:25→20:28)
[2024-09-20 15:54] LABS: Bilirubin Urine Negative (Negative); Blood Urine 3+ (Negative); Glucose Urine UA Negative (Normal); Ketones Urine Trace (Negative); Leukocyte Esterase Urine Trace (Negative); Nitrate Urine Negative (Negative); Protein Urine 1+ (Negative); Specific Gravity, Urine 1.012 (1.005-1.030); Urine Appearance Cloudy (CLEAR); Urine Color Dark Yellow (Yellow)
[2024-09-20 16:00] LABS: Add Urine Microscopic? YES; Bacteria Urine 2+ /hpf; Hyaline Casts Urine 2.87 /lpf
[2024-09-20 16:02] LABS: Add Urine Culture? Yes
[2024-09-20 16:44] LABS: Ammonia 41 umol/L (11-51)
[2024-09-20 17:41] LABS: Glucose Point of Care 249 mg/dL (70-110)
--- NOTE | 2024-09-20 18:59 | PC.NURSE ---
Bridget Flores [phone] sister of patient called for update, update given and transferred to portable phone as Bridget was insistent on speaking with patient despite patient resting.
[2024-09-20] MEDS: atenolol 50 mg Tablet PO (20:17)
[2024-09-20] MEDS: quetiapine 25 mg Tablet 50 MG PO (20:17)
[2024-09-20 20:26] LABS: Potassium 3.2 mmol/L (3.5-5.1)
--- NOTE | 2024-09-20 20:53 | P.NPUPN_ITS ---
Subjective NPU 2 Subjective: Patient presented today reporting that things are going okay. She had no explanation for her behavior last night. She reported no recollection of her [id number] behaviors that were consistent with possible DTs but she was focused on medication and discharge. We continue to talk about the use of benzodiazepines for her anxiety and that the risk-benefit analysis of that generally speaks to no benzos in this situation. We discussed starting some Seroquel tonight to assist with sleep and the likelihood of transfer to the neuropsychiatric unit tomorrow with improvement in her potassium. We were awaiting a recheck of her potassium so we identified that it would not happen today. Mental Status Exam 2 MSE Comments: This is a well-nourished well-developed white female in hospital gear with limited grooming but adequate eye contact. No abnormal movements except for mild psychomotor retardation. Cooperative with exam in mild to moderate distress. Speech was decreased rate and volume. Mood described as okay, affect slightly subdued. Thought process mostly linear. Thought content: Patient denied current suicidal or homicidal ideation, there were no delusions reported or noted, she denied auditory or visual hallucinations but did report being quite delusional and being perceptually disturbed on admission. The patient reported feelings of hopelessness and despair, but denied any suicidal ideation. She reported significant anxiety, including panic attacks and agoraphobia. She also reported occasional paranoia and one instance of psychosis due to stress. She reported difficulty sleeping and feeling restless. She denied any current thoughts of hurting herself or others. Attention and concentration appeared mostly intact and memory seemed mostly reliable but none were formally tested. She is alert and oriented times person and place. Insight and judgment are limited versus impaired, impulse control impaired. Vitals/I&O/Wt Last Vital Signs Temp 97.9 F 09/20/24 08:00 Pulse 107 H 09/20/24 18:00 Resp 16 09/20/24 17:00 BP 126/87 09/20/24 18:00 Pulse Ox 92 09/20/24 18:00 O2 Del Method Room Air 09/20/24 18:00 09/20/24 09/20/24 14:59 22:59 Intake Total 1014.383 / 1014.383 Output Total Balance 1014.383 / 1014.383 Weight last 48 hrs Weight 61.326 kg Weight 59.421 kg Weight 58.967 kg Data NPU 09/20/24 12:08 09/20/24 20:01 A&P Assessment and plan (1) Acute psychosis: (2) Alcohol withdrawal delirium, acute, hyperactive: (3) Chronic alcohol use: (4) Alcohol use disorder, severe, dependence: (5) Major depressive disorder, recurrent: (6) History of panic disorder: Plan This is a 44-year-old white female with a long history of addiction and mental health challenges as well as trauma. The patient is experiencing alcohol and substance use disorder, as well as psychiatric conditions including major depressive disorder and generalized anxiety disorder. She is currently not taking any prescribed mental health medications. Her physical health concerns include hypokalemia and a diagnosis of Hepatitis C. She has a significant family history of substance use disorder and psychiatric conditions. 1. Continue current medication. 2. Agree with 96-hour hold and transferred to the neuropsychiatric unit once medically stable. 3. Will continue to follow. 4. Obtain collateral information. The patient needs to address her substance use disorder, particularly her alcohol use due to her Hepatitis C diagnosis. She also needs to consider restarting psychotropic medication to manage her depression and anxiety. She expressed a desire for hypnotic medication, which those she reports success with Xanax is unclear if that is a great idea with her addiction issues. Attestations NPU 2 Medical Necessity Statement*: N/A. Please see primary team note for medical necessity. Agree with transfer to neuropsychiatric unit once medically cleared and potassium corrected. Coding Level of Care Code Acute Code for [facility] Fwd Diagnoses Acute psychosis F23 Alcohol withdrawal delirium, acute, hyperactive F10.931 Chronic alcohol use F10.90 Alcohol use disorder, severe, dependence F10.20 Major depressive disorder, recurrent F33.9 History of panic disorder Z86.59
--- NOTE | 2024-09-20 20:56 | PC.NURSE ---
Nicotine gum This nurse went to remove nicotine gum from patient's mouth due to patient falling asleep. When mouth was examined, patient appeared to have swallowed nicotine gum. Coughing noted, which is what prompted nurse to look in patient's mouth. Oxygen saturations remained within normal limits.
[2024-09-20] MEDS: cloNIDine 0.1 mg Tablet PO (22:15)
[2024-09-20 23:05] LABS: Glucose Point of Care 153 mg/dL (70-110)
[2024-09-20] MEDS: insulin glargine 100 units/1 mL 20 UNIT SUBCUT (23:09)
[2024-09-21] VITALS (23 sets, daily range): BP systolic 107–159; BP diastolic 78–110; PULSE 76–87; RESP 13–25; TEMP 36.6–37.1; O2SAT 89–100; BMI 25.4
--- NOTE | 2024-09-21 00:45 | PC.NURSE ---
Insulin 2230 dose of Humalog not given. Blood sugar was 153. Nighttime dose of 20 units of lantus given, Humalog held. Dr Sandoval aware.
[2024-09-21] MEDS: nicotine 2 mg Gum 4 MG BUCCAL ×6 (02:00→20:32)
[2024-09-21] MEDS: heparin 5,000 unit/mL INJ 1 mL 5000 UNIT SUBCUT (03:33)
[2024-09-21 03:51] LABS: Glucose Point of Care 326 mg/dL (70-110)
[2024-09-21] MEDS: insulin lispro 100 unit/1 mL SUBCUT ×3 (04:16→17:37)
[2024-09-21] MEDS: dextrose 10% 125 ML 750 ML IV (06:23)
[2024-09-21 06:25] LABS: Glucose Point of Care 33 mg/dL (70-110)
[2024-09-21 06:25] LABS: Glucose Point of Care 32 mg/dL (70-110)
[2024-09-21 06:32] LABS: Basophils % 0.6 %; Eosinophils # 0.1 10^3/uL (0.0-0.8); Eosinophils % 1.9 %; Hematocrit 36.2 % (36-47); Lymphocytes # 1.6 10^3/uL (0.8-4.8); Lymphocytes % 50.8 %; Mean Corpuscular HGB Conc 30.1 g/dL (30-55); Mean Corpuscular Hemoglobin 29.9 pg (27-33); Mean Corpuscular Volume 99.5 fl (85-98); Mean Platelet Volume 10.9 fL (7.4-10.4); Monocytes # 0.3 10^3/uL (0.2-0.9); Monocytes % 9.7 %; Neutrophils # 1.16 10^3/uL (1.8-7.7); Neutrophils % 36.4 %; Nucleated Red Blood Cells % 0 %; Platelet Count 80 10^3/cmm (157-399); Red Blood Count 3.64 10^6/uL (3.85-5.65); Red Cell Distribution Width 16.3 % (12.1-15.1); White Blood Count 3.19 10^3/uL (3.29-11.43)
[2024-09-21 06:41] LABS: Alanine Aminotransferase 36 U/L (0-33); Albumin Level 2.9 g/dL (3.5-5.2); Alkaline Phosphatase 111 U/L (35-105); Blood Urea Nitrogen 11 mg/dL (6-20); Calcium 8.1 mg/dL (8.5-10.5); Carbon Dioxide 20 mmol/L (22-29); Chloride 111 mmol/L (98-107); Creatinine Clr Calc Pharmacy 135.8956; Globulin 2.6 g/dL (1.3-4.6); Glomerular Filtration Rate 135.3 mL/min (90-130); Glucose 81 mg/dL (65-115); Osmolality Calculated 296 mOsm/kg (285-295); Sodium 144 mmol/L (136-145); Total Bilirubin 0.3 mg/dL (0.15-1.2); Total Protein 5.5 g/dL (6.6-8.7)
[2024-09-21 06:42] LABS: Glucose Point of Care 165 mg/dL (70-110)
[2024-09-21 06:47] LABS: Anion Gap 16.2 (5-19); Aspartate Amino Transferase 67 U/L (0-32); Potassium 3.2 mmol/L (3.5-5.1)
[2024-09-21 06:55] LABS: Chol HDL Ratio 3.45 mg/dL (0.0-4.40); Cholesterol 100 mg/dL (0-200); HDL Cholesterol 29 mg/dL (60-100); LDL Cholesterol Calculated 54 mg/dL (50-129); Magnesium 1.6 mg/dL (1.7-2.3); Triglycerides 83 mg/dL (0-150); VLDL Cholestrol Calculation 17 mg/dL (0-30)
[2024-09-21 07:37] LABS: Folate Level 14.3 ng/mL (4.8-37.3)
[2024-09-21] MEDS: gabapentin 300 mg Capsule 600 MG PO ×3 (08:23→20:33)
[2024-09-21] MEDS: thiamine 100 mg Tablet PO (08:23)
[2024-09-21] MEDS: multivitamin therapeutic Tablet 1 TAB PO (08:23)
[2024-09-21] MEDS: folic acid 1 mg Tablet PO (08:23)
[2024-09-21] MEDS: OLANZapine 5 mg ODT PO (08:23)
[2024-09-21] MEDS: atenolol 50 mg Tablet PO (08:23)
[2024-09-21] MEDS: cloNIDine 0.1 mg Tablet PO ×3 (08:23→20:32)
[2024-09-21] MEDS: nicotine 14 mg Patch 1 PATCH TRANSDERMA (08:47)
[2024-09-21 08:58] LABS: Glucose Point of Care 154 mg/dL (70-110)
[2024-09-21 09:54] LABS: Glucose Point of Care 231 mg/dL (70-110)
[2024-09-21] MEDS: magnesium sulfate premix 2 GM/50 ML PIGGYBACK IV (10:23)
[2024-09-21] MEDS: potassium chloride ER 20 mEq Tablet 40 MEQ PO ×2 (10:24→17:36)
[2024-09-21 11:46] LABS: Glucose Point of Care 143 mg/dL (70-110)
--- NOTE | 2024-09-21 13:10 | PC.NURSE ---
Patient transferred to NPU via wheelchair with belongings which included a brown purse and black slippers. Patient AOX4. Requesting her phone and nicotine gum.
--- NOTE | 2024-09-21 13:14 | PM.PN ---
Subjective Subjective: No acute events overnight. Patient has remained hemodynamically stable and afebrile. Today morning patient slightly more awake than yesterday. Able to have some conversation. Denies any nausea, vomiting, headache. Today morning blood sugars were slightly low after she received her Lantus over the evening. Blood sugars last checked after bolus have remained stable. Vitals/I&O/Wt Last Vital Signs Temp 98.6 F 09/21/24 13:11 Pulse 80 09/21/24 13:11 Resp 17 09/21/24 13:11 BP 149/101 09/21/24 13:11 Pulse Ox 100 09/21/24 13:11 O2 Del Method Room Air 09/21/24 13:11 09/20/24 09/21/24 09/21/24 23:59 06:59 14:59 Intake Total 672 / 672 Output Total Balance 672 / 672 Weight last 48 hrs Weight 69.4 kg Weight 69.4 kg Weight 69.8 kg Weight 61.326 kg Weight 59.421 kg Physical Exam Narrative: General: In no acute distress, lethargic, wakes up to have mild conversation, mumbling, AO x 1 to 2 HEENT: PERRLA, pupils bilaterally equal and reactive Chest: Normal vesicular breath sounds, no added sounds, equal good air entry bilaterally CVS: S1-S2 regular, no murmurs, no tachycardia, no gallops, no rubs Abdomen: Soft, nontender, no organomegaly, bowel sounds present Neuro: No facial deficit, moving all limbs Const: COMMON NORMALS: no acute distress and average body habitus GENERAL APPEARANCE: cooperative, comfortable and lethargic ORIENTATION/CONSCIOUSNESS: Yes lethargic Neuro: SENSORIUM/ORIENTATION: Yes lethargic Data 09/21/24 06:01 09/21/24 06:01 A&P Assessment and plan (1) Metabolic encephalopathy: Most likely in setting of alcohol withdrawal. Patient has history of chronic alcohol use and dependence. Does have mild transaminitis. Will check ammonia levels. Less likelihood in setting of electrolyte abnormalities. Patient has hypokalemia and hypomagnesemia. Hypophosphatemia resolved. No anion gap. She does have hyperglycemia. DKA unlikely. Urine drug screen appreciated. Precedex drip has been weaned off. Psychosis seems to be improving. Change Zyprexa Zydis 5 mg p.o. twice daily as needed. Continue with Seroquel added as per psychiatric recommendations. (2) Alcohol withdrawal delirium, acute, hyperactive: [facility] protocol. Seizure precautions. (3) Alcohol use disorder, severe, dependence: (4) Acute psychosis: (5) History of panic disorder: (6) Hypokalemia: Hypokalemia mostly resolved. Replace with 80 mg oral. Can start on 40 mg twice daily. Check BMP daily for now. (7) Hypomagnesemia: Replace 2 g IV. Start on Mag-Ox 400 milligrams twice daily. (8) Diabetes mellitus with hyperglycemia: No concerns for DKA. No anion gap. A1c 10.5. Patient had episode of hypoglycemia today morning. Hold off on Lantus for now. Continue with sliding scale. Depending on insulin requirement in next 24 hours will restart Lantus accordingly. Currently patient's oral intake is on and off as well given her mental status. Qualifiers: Diabetes mellitus retail advertising sales manager insulin use: with retail advertising sales manager use Diabetes mellitus type: type 2 Qualified Code(s): E11.65 - Type 2 diabetes mellitus with hyperglycemia; Z79.4 - jail (current) use of insulin (9) Elevated liver enzymes: History of hepatitis C in the past. Cannot rule out alcoholic hepatitis. Hepatitis C positive, HIV negative. (10) Hepatitis C: Qualifiers: Viral hepatitis chronicity: chronic Hepatic coma status: without hepatic coma Qualified Code(s): B18.2 - Chronic viral hepatitis C Plan Thrombocytopenia: Chronic most likely in setting of liver dysfunction. Improving. Patient is stable to be transferred over to Neuropsych Unit. She should be on potassium 40 mg twice daily along with Mag-Ox 400 milligrams twice daily. BMP should be checked daily along with magnesium level. Continue with insulin sliding scale. Will restart Lantus as per insulin requirements in next 24 to 48 hours. Will continue to follow while in Neuropsych Unit. Full code Can start carb consistent diet. One-to-one sitter Protonix for PUD prophylaxis Heparin 5000 every 12 hourly for DVT prophylaxis Attestations Medical Necessity Statement*: Requires further hospitalization for management of acute psychosis in setting of alcohol abuse, significant hypokalemia and hypomagnesemia as patient requires further treatment with Neuropsych Unit. Diagnoses Metabolic encephalopathy G93.41 Alcohol withdrawal delirium, acute, hyperactive F10.931 Alcohol use disorder, severe, dependence F10.20 Acute psychosis F23 History of panic disorder Z86.59 Hypokalemia E87.6 Hypomagnesemia E83.42 Diabetes mellitus with hyperglycemia E11.65; Z79.4 Diabetes mellitus retail advertising sales manager insulin use: with retail advertising sales manager use Diabetes mellitus type: type 2 Elevated liver enzymes R74.8 Chronic hepatitis C without hepatic coma B18.2 Viral hepatitis chronicity: chronic Hepatic coma status: without hepatic coma
[2024-09-21] MEDS: acetaminophen 325 mg Tablet 650 MG PO (13:48)
--- NOTE | 2024-09-21 14:10 | PC.NURSE ---
Patient arrived to unit accompanied by BRANDEN Lara from ICU, and security. Patient cooperative during assessment, somewhat guarded at onset, but did open up to this nurse. Patient was brought into the hospital for AVH; neighbor called police. Apparantely, patient felt threatened and had imagined 6 people were trying to hurt her. Patient is an alcoholic, drinking at least 20 shots of hard liquor each day. Patient says that she quit cold turkey and started having hallucinations. Patient is aware that what she was experiencing was not real. Patient denies SI, HI, AVH. Patient endorses depression and anxiety all the time.
--- NOTE | 2024-09-21 14:11 | PC.NURSE ---
Patient scored 10 on [facility]. Per protocol, administered ativan 2mg PO to patient. Will continue to closely monitor patient.
[2024-09-21] MEDS: LORazepam 2 mg Tablet PO (14:12)
--- NOTE | 2024-09-21 15:07 | P.NPUPN_ITS ---
Subjective NPU 2 Subjective: Patient presented today continuing to be focused on discharge. She continued to endorse a plan to work on her sobriety but with no real changes that she can describe that we will help curtail her addiction. She continues to endorse needing to get home to her cat and seems to be frustrated that a benzodiazepine has not been added as part of her plan. We continued to discuss concerns about benzodiazepines given her significant alcohol use disorder. She continued to be focused on whether or not she was still getting Ativan for withdrawal. We discussed the risks, benefits and alternatives of starting Wellbutrin XL and she understood and agreed to proceed as is documented in this note. She denied any side effects to the medication. Mental Status Exam 2 MSE Comments: This is a well-nourished well-developed white female in hospital scrubs with limited grooming but adequate eye contact. No abnormal movements except for mild psychomotor retardation. Cooperative with exam in mild distress. Speech was decreased rate and volume. Mood described as okay, affect slightly subdued. Thought process mostly linear. Thought content: Patient denied current suicidal or homicidal ideation, there were no delusions reported or noted, she denied auditory or visual hallucinations. Attention and concentration appeared mostly intact and memory seemed mostly reliable but none were formally tested. She is alert and oriented times person and place. Insight and judgment are limited versus impaired, impulse control impaired. Vitals/I&O/Wt Last Vital Signs Temp 98.6 F 09/21/24 13:11 Pulse 80 09/21/24 13:11 Resp 17 09/21/24 13:11 BP 149/101 09/21/24 13:48 Pulse Ox 100 09/21/24 13:11 O2 Del Method Room Air 09/21/24 13:11 09/21/24 09/21/24 09/21/24 06:59 14:59 22:59 Intake Total 672 / 672 Balance 672 / 672 Weight last 48 hrs Weight 69.4 kg Weight 69.4 kg Weight 69.8 kg Weight 61.326 kg Weight 59.421 kg Data NPU 09/21/24 06:01 09/21/24 06:01 A&P Assessment and plan (1) Acute psychosis: (2) Alcohol withdrawal delirium, acute, hyperactive: (3) Chronic alcohol use: (4) Alcohol use disorder, severe, dependence: (5) Major depressive disorder, recurrent: (6) History of panic disorder: Plan This is a 44-year-old white female with a long history of addiction and mental health challenges as well as trauma. The patient is experiencing alcohol and substance use disorder, as well as psychiatric conditions including major depressive disorder and generalized anxiety disorder. She is currently not taking any prescribed mental health medications. Her physical health concerns include hypokalemia and a diagnosis of Hepatitis C. She has a significant family history of substance use disorder and psychiatric conditions. 1. Continue current medication. Initiate Wellbutrin XL 150 mg p.o. every morning. 2. Transfer to neuropsychiatric unit. 3. Encourage individual, group and milieu therapy. 4. Obtain collateral information. The patient needs to address her substance use disorder, particularly her alcohol use due to her Hepatitis C diagnosis. She also needs to consider restarting psychotropic medication to manage her depression and anxiety. She expressed a desire for hypnotic medication, which those she reports success with Xanax is unclear if that is a great idea with her addiction issues. 5. Encourage sober living treatment after discharge at the highest level care to which she is willing to commit. Involuntary Hold Information 2 96 Hour Hold: 96 Hour Involuntary Admission: Yes 96 Hour Hold Ending Date: 09/25/24 96 Hour Hold Ending Time: 09:10 Attestations NPU 2 Medical Necessity Statement*: Inpatient hospitalization is medically necessary and the clinically appropriate intervention at this time. We will monitor medications and make changes as indicated. Likely length of stay is 2-4 days. Coding Level of Care Code Acute Code for [facility] Fwd Diagnoses Acute psychosis F23 Alcohol withdrawal delirium, acute, hyperactive F10.931 Chronic alcohol use F10.90 Alcohol use disorder, severe, dependence F10.20 Major depressive disorder, recurrent F33.9 History of panic disorder Z86.59
[2024-09-21 17:08] LABS: Glucose Point of Care 385 mg/dL (70-110)
[2024-09-21] MEDS: magnesium oxide 400 mg tablet PO (17:36)
[2024-09-21 19:45] LABS: Glucose Point of Care 237 mg/dL (70-110)
[2024-09-21] MEDS: quetiapine 25 mg Tablet 50 MG PO (20:32)
[2024-09-22] VITALS (11 sets, daily range): BP systolic 118–159; BP diastolic 83–102; PULSE 72–78; RESP 16; TEMP 36.3–37; O2SAT 97–100
[2024-09-22 07:28] LABS: Glucose Point of Care 239 mg/dL (70-110)
[2024-09-22] MEDS: nicotine 2 mg Gum 4 MG BUCCAL ×6 (08:31→19:30)
[2024-09-22] MEDS: thiamine 100 mg Tablet PO (08:35)
[2024-09-22] MEDS: folic acid 1 mg Tablet PO (08:35)
[2024-09-22] MEDS: atenolol 50 mg Tablet PO (08:35)
[2024-09-22] MEDS: magnesium oxide 400 mg tablet PO ×2 (08:36→17:19)
[2024-09-22] MEDS: gabapentin 300 mg Capsule 600 MG PO ×3 (08:36→20:49)
[2024-09-22] MEDS: multivitamin therapeutic Tablet 1 TAB PO (08:36)
[2024-09-22] MEDS: cloNIDine 0.1 mg Tablet PO ×3 (08:36→20:49)
[2024-09-22] MEDS: potassium chloride ER 20 mEq Tablet 40 MEQ PO (08:37)
[2024-09-22] MEDS: insulin lispro 100 unit/1 mL SUBCUT ×2 (08:37→17:20)
[2024-09-22] MEDS: cetirizine 10 mg Tablet PO (08:37)
[2024-09-22] MEDS: nicotine 14 mg Patch 1 PATCH TRANSDERMA (08:39)
--- NOTE | 2024-09-22 08:52 | PC.NURSE ---
Patient appears irritated this morning. When getting her tray this morning she stated, I can't read this. This is too small, and rolled her eyes. Patient also asked for her phone to get numbers off of it and staff told her it would be a moment as we were doing assessments and medication administration at the time. Patient again rolled her eyes and walked away.
[2024-09-22 09:04] LABS: Basophils % 0.4 %; Eosinophils # 0.1 10^3/uL (0.0-0.8); Eosinophils % 1.5 %; Hematocrit 39.7 % (36-47); Lymphocytes # 1.9 10^3/uL (0.8-4.8); Lymphocytes % 40.9 %; Mean Corpuscular HGB Conc 31.7 g/dL (30-55); Mean Corpuscular Hemoglobin 29.3 pg (27-33); Mean Corpuscular Volume 92.3 fl (85-98); Mean Platelet Volume 10.6 fL (7.4-10.4); Monocytes # 0.5 10^3/uL (0.2-0.9); Monocytes % 10.7 %; Neutrophils # 2.12 10^3/uL (1.8-7.7); Neutrophils % 46.1 %; Nucleated Red Blood Cells % 0 %; Platelet Count 139 10^3/cmm (157-399); Red Cell Distribution Width 16.4 % (12.1-15.1)
[2024-09-22 09:22] LABS: Blood Urea Nitrogen 11 mg/dL (6-20); Calcium 8.3 mg/dL (8.5-10.5); Carbon Dioxide 21 mmol/L (22-29); Chloride 104 mmol/L (98-107); Creatinine Clr Calc Pharmacy 143.3686; Glomerular Filtration Rate 135.3 mL/min (90-130); Glucose 185 mg/dL (65-115); Magnesium 1.7 mg/dL (1.7-2.3); Osmolality Calculated 284 mOsm/kg (285-295); Sodium 135 mmol/L (136-145)
[2024-09-22 09:23] LABS: Anion Gap 14.4 (5-19); Potassium 4.4 mmol/L (3.5-5.1)
[2024-09-22] MEDS: ibuprofen 600 mg Tablet PO ×2 (10:26→19:30)
[2024-09-22 11:10] LABS: Glucose Point of Care 133 mg/dL (70-110)
--- NOTE | 2024-09-22 14:45 | P.NPUPN_ITS ---
Subjective NPU 2 Subjective: Patient presented today reporting that she was feeling okay. She continued to focus on discharge but was able to begin to think a little more about her recovery and the need to change. We discussed the risks, benefits and alternatives of initiating the Wellbutrin XL and she understood and agreed to proceed as is documented in this note. She is working with the social work team on a plan for recovery oriented treatment. She denied any side effects or medications. Mental Status Exam 2 MSE Comments: This is a well-nourished well-developed white female in hospital scrubs with limited grooming but adequate eye contact. No abnormal movements except for mild psychomotor retardation. Cooperative with exam in mild distress. Speech was decreased rate and volume. Mood described as okay, affect slightly subdued. Thought process mostly linear. Thought content: Patient denied current suicidal or homicidal ideation, there were no delusions reported or noted, she denied auditory or visual hallucinations. Attention and concentration appeared mostly intact and memory seemed mostly reliable but none were formally tested. She is alert and oriented times person and place. Insight and judgment are limited versus impaired, impulse control impaired. Vitals/I&O/Wt Last Vital Signs Temp 98.3 F 09/22/24 12:00 Pulse 77 09/22/24 12:00 Resp 16 09/22/24 07:35 BP 156/99 09/22/24 14:33 Pulse Ox 99 09/22/24 12:00 O2 Del Method Room Air 09/22/24 12:00 09/21/24 09/22/24 09/22/24 22:59 06:59 14:59 Intake Total 47.468 / 719.468 Balance 47.468 / 719.468 Weight last 48 hrs Weight 69.4 kg Weight 69.4 kg Weight 69.4 kg Weight 69.8 kg Data NPU 09/22/24 08:30 09/22/24 08:30 Micro: Microbiology 09/20/24 15:16 Urine Culture - Preliminary Urine,Clean Catch Microbiology 09/20/24 15:16 Urine,Clean Catch Urine Culture - Preliminary A&P Assessment and plan (1) Acute psychosis: (2) Alcohol withdrawal delirium, acute, hyperactive: (3) Chronic alcohol use: (4) Alcohol use disorder, severe, dependence: (5) Major depressive disorder, recurrent: (6) History of panic disorder: Plan This is a 44-year-old white female with a long history of addiction and mental health challenges as well as trauma. The patient is experiencing alcohol and substance use disorder, as well as psychiatric conditions including major depressive disorder and generalized anxiety disorder. She is currently not taking any prescribed mental health medications. Her physical health concerns include hypokalemia and a diagnosis of Hepatitis C. She has a significant family history of substance use disorder and psychiatric conditions. 1. Continue current medication. Initiate Wellbutrin XL 150 mg p.o. every morning. 2. Transfer to neuropsychiatric unit. 3. Encourage individual, group and milieu therapy. 4. Obtain collateral information. The patient needs to address her substance use disorder, particularly her alcohol use due to her Hepatitis C diagnosis. She also needs to consider restarting psychotropic medication to manage her depression and anxiety. She expressed a desire for hypnotic medication, which those she reports success with Xanax is unclear if that is a great idea with her addiction issues. 5. Encourage sober living treatment after discharge at the highest level care to which she is willing to commit. Involuntary Hold Information 2 96 Hour Hold: 96 Hour Involuntary Admission: Yes 96 Hour Hold Ending Date: 09/25/24 96 Hour Hold Ending Time: 09:10 Other Hold: Hold End Date: 09/25/24 Attestations NPU 2 Medical Necessity Statement*: Inpatient hospitalization is medically necessary and the clinically appropriate intervention at this time. We will monitor medications and make changes as indicated. Likely length of stay is 1-3 days. Coding Level of Care Code Acute Code for [facility] Fwd Diagnoses Acute psychosis F23 Alcohol withdrawal delirium, acute, hyperactive F10.931 Chronic alcohol use F10.90 Alcohol use disorder, severe, dependence F10.20 Major depressive disorder, recurrent F33.9 History of panic disorder Z86.59
[2024-09-22 17:09] LABS: Glucose Point of Care 489 mg/dL (70-110)
[2024-09-22] MEDS: OLANZapine 5 mg ODT PO (17:19)
--- NOTE | 2024-09-22 18:34 | PC.NURSE ---
ZYDIS 5 MG GIVEN FOR INCREASED ANXIETY.
[2024-09-22 19:16] LABS: Glucose Point of Care 219 mg/dL (70-110)
[2024-09-22] MEDS: quetiapine 25 mg Tablet 50 MG PO (20:49)
[2024-09-23] VITALS (9 sets, daily range): BP systolic 126–164; BP diastolic 78–103; PULSE 58–80; RESP 16–18; TEMP 36.7–37.2; O2SAT 99
[2024-09-23] MEDS: nicotine 4 mg lozenge MUCOUS MEM ×8 (05:27→21:04)
[2024-09-23 07:36] LABS: Glucose Point of Care 257 mg/dL (70-110)
[2024-09-23] MEDS: insulin lispro 100 unit/1 mL SUBCUT ×3 (08:00→17:27)
[2024-09-23] MEDS: gabapentin 300 mg Capsule 600 MG PO ×3 (08:01→21:04)
[2024-09-23] MEDS: thiamine 100 mg Tablet PO (08:01)
[2024-09-23] MEDS: buPROPion XL (24 HR) 150 mg Tablet PO (08:01)
[2024-09-23] MEDS: potassium chloride ER 20 mEq Tablet 40 MEQ PO (08:02)
[2024-09-23] MEDS: multivitamin therapeutic Tablet 1 TAB PO (08:02)
[2024-09-23] MEDS: cloNIDine 0.1 mg Tablet PO ×3 (08:02→21:03)
[2024-09-23] MEDS: folic acid 1 mg Tablet PO (08:02)
[2024-09-23] MEDS: atenolol 50 mg Tablet PO (08:02)
[2024-09-23] MEDS: cetirizine 10 mg Tablet PO (08:02)
[2024-09-23] MEDS: magnesium oxide 400 mg tablet PO ×2 (08:02→17:22)
[2024-09-23] MEDS: nicotine 14 mg Patch 1 PATCH TRANSDERMA (08:03)
[2024-09-23] MEDS: ibuprofen 600 mg Tablet PO (09:19)
[2024-09-23 09:36] LABS: Anion Gap 11.5 (5-19); Blood Urea Nitrogen 9 mg/dL (6-20); Calcium 8.8 mg/dL (8.5-10.5); Carbon Dioxide 27 mmol/L (22-29); Chloride 96 mmol/L (98-107); Creatinine Clr Calc Pharmacy 143.3686; Glomerular Filtration Rate 135.3 mL/min (90-130); Glucose 208 mg/dL (65-115); Magnesium 1.9 mg/dL (1.7-2.3); Osmolality Calculated 275 mOsm/kg (285-295); Potassium 4.5 mmol/L (3.5-5.1); Sodium 130 mmol/L (136-145)
[2024-09-23 11:10] LABS: Glucose Point of Care 308 mg/dL (70-110)
[2024-09-23] MEDS: nicotine 2 mg Gum 4 MG BUCCAL (11:18)
[2024-09-23] MEDS: acetaminophen 325 mg Tablet 650 MG PO (15:30)
--- NOTE | 2024-09-23 16:55 | P.NPUPN_ITS ---
Subjective NPU 2 Subjective: Patient presented today reporting that things are going okay. We discussed a likely plan for discharge tomorrow and we agreed that she would continue to work with the social work team to ensure appropriate follow-up schedule to address the significant addiction that she has. We discussed the importance of her having even greater stability as her roommate also suffers from significant alcohol challenges. She denied any side effects of the medication. Mental Status Exam 2 MSE Comments: This is a well-nourished well-developed white female in hospital scrubs with limited grooming but adequate eye contact. No abnormal movements except for mild psychomotor retardation. Cooperative with exam in mild distress. Speech was decreased rate and volume. Mood described as okay, affect slightly subdued. Thought process mostly linear. Thought content: Patient denied current suicidal or homicidal ideation, there were no delusions reported or noted, she denied auditory or visual hallucinations. Attention and concentration appeared mostly intact and memory seemed mostly reliable but none were formally tested. She is alert and oriented times person and place. Insight and judgment are limited but improving, impulse control impaired. Vitals/I&O/Wt Last Vital Signs Temp 98.1 F 09/23/24 16:00 Pulse 80 09/23/24 16:00 Resp 17 09/23/24 16:00 BP 138/89 09/23/24 16:00 Pulse Ox 99 09/23/24 16:00 O2 Del Method Room Air 09/23/24 16:00 Weight last 48 hrs Weight 69.4 kg Data NPU 09/22/24 08:30 09/23/24 08:42 Micro: Microbiology 09/20/24 15:16 Urine Culture - Final Urine,Clean Catch Microbiology 09/20/24 15:16 Urine,Clean Catch Urine Culture - Final A&P Assessment and plan (1) Acute psychosis: (2) Alcohol withdrawal delirium, acute, hyperactive: (3) Chronic alcohol use: (4) Alcohol use disorder, severe, dependence: (5) Major depressive disorder, recurrent: (6) History of panic disorder: Plan This is a 44-year-old white female with a long history of addiction and mental health challenges as well as trauma. The patient is experiencing alcohol and substance use disorder, as well as psychiatric conditions including major depressive disorder and generalized anxiety disorder. She is currently not taking any prescribed mental health medications. Her physical health concerns include hypokalemia and a diagnosis of Hepatitis C. She has a significant family history of substance use disorder and psychiatric conditions. 1. Continue current medication. Initiated Wellbutrin XL 150 mg p.o. every morning. 2. Transferred to neuropsychiatric unit. 3. Encourage individual, group and milieu therapy. 4. Obtain collateral information. The patient needs to address her substance use disorder, particularly her alcohol use due to her Hepatitis C diagnosis. She also needs to consider restarting psychotropic medication to manage her depression and anxiety. She expressed a desire for hypnotic medication, which those she reports success with Xanax is unclear if that is a great idea with her addiction issues. 5. Encourage sober living treatment after discharge at the highest level care to which she is willing to commit. 6. Tentative plan for discharge tomorrow. Involuntary Hold Information 2 96 Hour Hold: 96 Hour Involuntary Admission: Yes 96 Hour Hold Ending Date: 09/25/24 96 Hour Hold Ending Time: 09:10 Other Hold: Hold End Date: 09/25/24 Attestations NPU 2 Medical Necessity Statement*: Inpatient hospitalization is medically necessary and the clinically appropriate intervention at this time. We will monitor medications and make changes as indicated. Likely length of stay is 1-2 days. Coding Level of Care Code Acute Code for g Fwd Diagnoses Acute psychosis F23 Alcohol withdrawal delirium, acute, hyperactive F10.931 Chronic alcohol use F10.90 Alcohol use disorder, severe, dependence F10.20 Major depressive disorder, recurrent F33.9 History of panic disorder Z86.59
[2024-09-23 17:12] LABS: Vitamin B12 667 pg/mL (232-1245)
[2024-09-23] MEDS: OLANZapine 5 mg ODT PO (17:23)
[2024-09-23 17:28] LABS: Glucose Point of Care 253 mg/dL (70-110)
[2024-09-23 19:22] LABS: Glucose Point of Care 166 mg/dL (70-110)
[2024-09-23] MEDS: quetiapine 25 mg Tablet 50 MG PO (21:03)
[2024-09-24] VITALS (7 sets, daily range): BP systolic 114–155; BP diastolic 80–103; PULSE 68–99; RESP 15–18; TEMP 36.7; O2SAT 98–100
[2024-09-24] MEDS: nicotine 4 mg lozenge MUCOUS MEM ×2 (06:28→08:24)
[2024-09-24 07:41] LABS: Glucose Point of Care 349 mg/dL (70-110)
[2024-09-24] MEDS: insulin lispro 100 unit/1 mL SUBCUT ×2 (07:46→11:41)
[2024-09-24 07:57] LABS: Blood Urea Nitrogen 9 mg/dL (6-20); Calcium 8.7 mg/dL (8.5-10.5); Carbon Dioxide 24 mmol/L (22-29); Chloride 97 mmol/L (98-107); Glomerular Filtration Rate 135.3 mL/min (90-130); Glucose 394 mg/dL (65-115); Osmolality Calculated 283 mOsm/kg (285-295); Sodium 129 mmol/L (136-145)
[2024-09-24 08:08] LABS: Anion Gap 13.4 (5-19); Potassium 5.4 mmol/L (3.5-5.1)
[2024-09-24] MEDS: buPROPion XL (24 HR) 150 mg Tablet PO (08:08)
[2024-09-24] MEDS: multivitamin therapeutic Tablet 1 TAB PO (08:08)
[2024-09-24] MEDS: thiamine 100 mg Tablet PO (08:08)
[2024-09-24] MEDS: cloNIDine 0.1 mg Tablet PO ×2 (08:08→14:01)
[2024-09-24] MEDS: magnesium oxide 400 mg tablet PO (08:08)
[2024-09-24] MEDS: potassium chloride ER 20 mEq Tablet 40 MEQ PO (08:08)
[2024-09-24] MEDS: atenolol 50 mg Tablet PO (08:08)
[2024-09-24] MEDS: folic acid 1 mg Tablet PO (08:08)
[2024-09-24] MEDS: cetirizine 10 mg Tablet PO (08:11)
[2024-09-24] MEDS: gabapentin 300 mg Capsule 600 MG PO ×2 (08:11→14:01)
[2024-09-24] MEDS: OLANZapine 5 mg ODT PO (08:32)
[2024-09-24] MEDS: nicotine 14 mg Patch 1 PATCH TRANSDERMA (09:07)
[2024-09-24] MEDS: LORazepam 2 mg Tablet PO (09:07)
[2024-09-24] MEDS: nicotine 2 mg Gum 4 MG BUCCAL ×2 (10:33→13:36)
[2024-09-24 11:54] LABS: Glucose Point of Care 354 mg/dL (70-110)
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
[2024-09-24 16:14] LABS: HEP C RNA Viral Load Quant 22100 IU/mL (NOT DETECTED); HEP C RNA Viral Load Quant 4.34 Log IU/mL (NOT DETECTED)
== END 2024-09-24 15:21 | disposition home or self-care (01) | DRG 896 ==
LOC: ER 12:28 → ICU 13:08 → NP 09-21 12:59
PROVIDERS: Internal Medicine; Physician Assistant; Student in an Organized Health Care Education/Training Program; Admitting Provider Family Medicine; Emergency Provider Family Medicine; Visit Provider Internal Medicine
DX: F10.231 Alcohol dependence with withdrawal delirium (principal); G93.41 Metabolic encephalopathy; F23 Brief psychotic disorder; F33.9 Major depressive disorder, recurrent, unspecified; F41.1 Generalized anxiety disorder; E87.6 Hypokalemia; B19.20 Unspecified viral hepatitis C without hepatic coma; T50.906A Underdosing of unspecified drugs, medicaments and biological substances, initial encounter; D64.9 Anemia, unspecified; F17.200 Nicotine dependence, unspecified, uncomplicated; E11.65 Type 2 diabetes mellitus with hyperglycemia; E83.42 Hypomagnesemia; E83.39 Other disorders of phosphorus metabolism; E86.0 Dehydration; D69.6 Thrombocytopenia, unspecified; Z81.8 Family history of other mental and behavioral disorders; Z91.148 Patient's other noncompliance with medication regimen for other reason; Z79.4 Long term (current) use of insulin
CPT/HCPCS: 36415; 36416; 80048; 80053; 80061; 80306; 80307; 81001; 82009; 82140; 82607; 82746; 82962; 83036; 83540; 83550; 83735; 84100; 84132; 84443; 84484; 84703; 85025; 85610; 85730; 86705; 86706; 86709; 86803; 87086; 87340; 87522; 87806; 93005; 96365; 96367; 96372; 96374; 96375; 96376; 97150; 97165; 99285; 99291; J1644; J1815; J2060; J3411; J3475; J3480; J3490; J7030; J7799

== ENCOUNTER 2024-12-26 15:23 | Emergency (ER) | payer OTHER, BC, MEDICAID, SELFPAY ==
[2024-12-26 15:35] VITALS: BP 148/99; PULSE 94; RESP 16; TEMP 36.9; O2SAT 95
--- NOTE | 2024-12-26 15:40 | ED_ITS ---
Documented by User: WAQAR Ulrich 12/26/24 15:46 HPI - General Adult 2 General: Chief complaint: Recheck/Abnormal Lab/Rx Stated complaint: hyperglycemia Time Seen by Provider: 12/26/24 15:31 Source: patient Mode of arrival: EMS Limitations: no limitations History of Present Illness: Patient is a 44-year-old female presents to ED today with a complaint of hallucinations and hyperglycemia. Patient states she is a type II diabetic. She is a chronic alcoholic. She reportedly quit drinking this morning. She has now hearing voices and seeing people but states these have been present for a few days. She has had similar symptoms previously and admitted to the hospital. Patient denies recent drug use. She arrives to the ED today with stable vital signs. She is complaining of polydipsia. Onset (ago): day(s) Associated symptoms: Deny chest pain, dyspnea, malaise, nausea, rash, palpitations, syncope or vomiting Treatments prior to arrival: none Related Data Home Medications ?Medication ?Instructions ?Recorded ?Confirmed atenolol 50 mg tablet 50 mg PO DAILY 04/19/2109/20 gabapentin 600 mg tablet 600 mg PO TID 04/19/2110/15 atorvastatin 10 mg tablet 10 mg PO DAILY 09/19/2409/20 insulin glargine 100 unit/mL (3 25 unit SUBCUT DAILY 1 11/19/23 10/15/24 mL) subcutaneous pen (Lantus Solostar U-100 Insulin) insulin lispro 100 unit/mL See Rx Instructions .Route .COMPLEX 09/19/24 10/15/24 subcutaneous pen (Humalog KwikPen (U-100) Insulin) lisinopril 2.5 mg tablet 2.5 mg PO DAILY 09/19/24 Previous Rx's ?Medication ?Instructions ?Recorded bupropion HCl 150 mg 24 hr tablet, 150 mg PO DAILY 30 days #30 tabs 09/24/24 extended release cetirizine 10 mg tablet 10 mg PO DAILY 30 days #30 t abs 09/24/24 clonidine HCl 0.1 mg tablet 0.1 mg PO TID 30 days #90 tabs 09/24/24 magnesium oxide 400 mg (241.3 mg 400 mg PO BID 30 days #60 tabs 09/24/24 magnesium) tablet olanzapine 5 mg disintegrating 5 mg PO DAILY PRN Agita tion 30 09/24/24 tablet days #30 tabs potassium chloride 20 mEq 40 meq (2 x 20 mEq) PO DAILY 30 09/24/24 tablet,extended days #60 tabs release(part/cryst) (Klor-Con M) quetiapine 25 mg tablet 50 mg (2 x 25 mg) PO BEDTIME 30 09/24/24 days #60 tabs thiamine mononitrate (vit B1) 100 100 mg PO DAILY 30 d ays #30 tabs 09/24/24 mg tablet (Vitamin B-1 (mononitrate)) clotrimazole-betamethasone 1 1 applic topical BID 4 we eks #15 10/15/24 %-0.05 % topical cream grams chlordiazepoxide HCl 10 mg capsule 10 mg PO BID PRN an xiety #14 caps 12/26/24 Allergies Allergy/AdvReac Type Severity Reaction Status Date / Time No Known Allergies Allergy Verified 12/26/24 15:40 Review of Systems 2 Const: Denies: fever(s), chills, body aches, fatigue or malaise Eyes: Denies: change in vision or blurry vision Card: Denies: chest pain, palpitations, irregular heart rhythm, lightheadedness, syncope or dyspnea on exertion Resp: Denies: dyspnea, productive cough or pain on inspiration GI: Denies: abdominal pain, nausea, vomiting, heartburn or diarrhea : Denies: dysuria Musc: Denies: neck pain, back pain or joint pain Skin/Breast: Denies: rash Psych: Reports: anxiety, visual hallucinations and auditory hallucinations; Denies: suicidal ideation or homicidal ideation Endo: Reports: polydipsia PFSH ED 2 PFSH: Medical History Hepatitis C Type 4 with normal LFTs. Social History Smoking and tobacco/nicotine status: unknown if used tobacco/nicotine Alcohol intake: current Alcohol intake frequency: holidays/special occasions only Adopted: No Marital status: Single Number of children: 1 service: No Physical Exam 2 Const: COMMON NORMALS: patient oriented x3, no limitations, alert and well nourished GENERAL APPEARANCE: cooperative, disheveled and appears older than stated age ORIENTATION/CONSCIOUSNESS: Yes awake, Yes oriented to person, Yes oriented to place and Yes oriented to time HENMT: COMMON NORMALS: normocephalic and atraumatic HEAD & SCALP: normal to inspection, normocephalic and atraumatic Eye: GENERAL EYE: appearance normal, both eyes and all related structures Resp: COMMON NORMALS: normal respiratory effort and clear to auscultation bilaterally AUSCULTATION: clear to auscultation bilaterally Cardio: COMMON NORMALS: regular rate and regular rhythm RATE: regular rate RHYTHM: regular rhythm GI: COMMON NORMALS: Normal to inspection, nondistended, normoactive bowel sounds present, Soft to palpation and non-tender PALPATION: Yes Soft to palpation Extremity: GENERAL: Yes normal exam except as noted Neuro: RENNY COMA SCALE: document GCS findings [place] coma scale eye opening: Spontaneous [place] coma scale verbal response: Orientated [place] coma scale motor response: Obey commands [place] coma scale total score: 15 COMMON NORMALS: patient oriented x3, moves all extremities, no focal motor deficits and no sensory deficits noted SENSORIUM/ORIENTATION: Yes alert, Yes oriented to person, Yes oriented to place and Yes oriented to time Psych: COMMON NORMALS: Normal thought process present, speech normal, denies homicidal ideation and denies suicidal ideation APPEARANCE: Yes disheveled ATTITUDE: Yes calm ACTIVITY/MOTOR BEHAVIOR: Yes appropriate eye contact S PEECH: Yes normal speech THOUGHT PROCESS: Normal thought process present T HOUGHT CONTENT: Yes Normal thought content present ATTENTION/CONCENTRATION: Y es attention grossly intact and Yes concentration grossly intact M SALVADOR/COGNITION: Yes memory grossly intact and Yes cognition grossly intact I NSIGHT: Fair insight present (Psych) JUDGEMENT: Fair judgement present (Psych) Skin: COMMON NORMALS: no rashes or lesions noted GENERAL SKIN EXAM: no rashes or lesions noted Course 2 Vital Signs: Vital signs: Vital Signs Temperature 98.4 F 12/26/24 15:35 Pulse Rate 90 12/26/24 18:00 Respiratory Rate 16 12/26/24 18:00 Blood Pressure 125/86 12/26/24 18:00 Pulse Oximetry 93 12/26/24 18:00 Oxygen Delivery Me thod Room Air 12/26/24 18:00 MDM - General Adult Lab Data 12/26/24 16:12 12/26/24 16:12 Laboratory Results WBC 9.30 10^3/uL (3.29-11.43) 12/26/24 16:12 RBC 4.73 10^6/uL (3.85-5.65) 12/26/24 16:12 Hgb 14.00 g/dL (11.27-16.99) 12/26/24 16:12 Hct 40.8 % (36-47) 12/26/24 16:12 MCV 86.3 fl (85-98) 12/26/24 16:12 MCH 29.6 pg (27-33) 12/26/24 16:12 MCHC 34.3 g/dL (30-55) 12/26/24 16:12 RDW 13.3 % (12.1-15.1) 12/26/24 16:12 Plt Count 181 10^3/cmm (157-399) 12/26/24 16:12 MPV 10.5 fL (7.4-10.4) H 12/26/24 16:12 Neut % (Auto) 68.6 % 12/26/24 16:12 Lymph % (Auto) 24.1 % 12/26/24 16:12 [place] % (Auto) 6.1 % 12/26/24 16:12 Eos % (Auto) 0.4 % 12/26/24 16:12 Baso % (Auto) 0.4 % 12/26/24 16:12 Neut # (Auto) 6.37 10^3/uL (1.8-7.7) 12/26/24 16:12 Lymph # (Auto) 2.2 10^3/uL (0.8-4.8) 12/26/24 16:12 [place] # (Auto) 0.6 10^3/uL (0.2-0.9) 12/26/24 16:12 Eos # (Auto) 0.0 10^3/uL (0.0-0.8) 12/26/24 16:12 Baso # (Auto) 0.0 10^3/uL (0.0-0.1) 12/26/24 16:12 Nucleated RBC % (auto) 0 % 12/26/24 16:12 Nucleated RBCs # 0.0 /100WBC 12/26/24 16:12 Specimen Type Arterial 12/26/24 16:09 Sample Site Radial, right 12/26/24 16:09 ABG pH 7.43 (7.35-7.45) 12/26/24 16:09 ABG pCO2 39.8 mmHg (35-45) 12/26/24 16:09 ABG pO2 76.7 mmHg (80.0-100.0) L 12/26/24 16:09 ABG PO2/FiO2 Ratio 365 12/26/24 16:09 ABG HCO3 26.2 mmol/L (22-26) H 12/26/24 16:09 ABG O2 Saturation 95.6 12/26/24 16:09 ABG Base Excess 1.8 mmol/L (-2.0-2.0) 12/26/24 16:09 Ej Test Pos 12/26/24 16:09 A-a O2 Gradient 3.1 mmHg (5-10) L 12/26/24 16:09 Hematocrit 44.7 % (37-47) 12/26/24 16:09 Hgb O2 Saturation 92.2 % (95-100) L 12/26/24 16:09 Carboxyhemoglobin 3.5 %THgb (0.4-20.1) 12/26/24 16:09 Methemoglobin 0.2 % (0.4-1.5) L 12/26/24 16:09 Total Hemoglobin 14.6 g/dL (12-16) 12/26/24 16:09 Sodium 143.0 mmol/L (131-143) 12/26/24 16:09 Potassium 3.1 mmol/L (3.5-5.0) L 12/26/24 16:09 Glucose 373.0 mg/dL (70-115) H 12/26/24 16:09 Ionized Calcium 1.1 mmol/L (1.1-1.4) 12/26/24 16:09 O2 Delivery Device Room air 12/26/24 16:09 FiO2 21.0 % 12/26/24 16:09 Mine Engineering Supervisor ID glc 12/26/24 16:09 Sodium 140 mmol/L (136-145) 12/26/24 16:12 Potassium 3.3 mmol/L (3.5-5.1) L 12/26/24 16:12 Chloride 95 mmol/L (98-107) L 12/26/24 16:12 Carbon Dioxide 23 mmol/L (22-29) 12/26/24 16:12 Anion Gap 25.3 (5-19) H 12/26/24 16:12 BUN 9 mg/dL (6-20) 12/26/24 16:12 Creatinine 0.4 mg/dL (0.5-0.9) L 12/26/24 16:12 GFR Calculation 175.0 mL/min (90-130) H 12/26/24 16:12 Glucose 384 mg/dL (65-115) H 12/26/24 16:12 Calculated Osmolality 305 mOsm/kg (285-295) H 12/26/24 16:12 Calcium 9.0 mg/dL (8.5-10.5) 12/26/24 16:12 Magnesium 1.9 mg/dL (1.7-2.3) 12/26/24 16:12 Total Bilirubin 0.4 mg/dL (0.15-1.2) 12/26/24 16:12 AST 140 U/L (0-32) H 12/26/24 16:12 ALT 59 U/L (0-33) H 12/26/24 16:12 Alkaline Phosphatase 177 U/L (35-105) H 12/26/24 16:12 Total Protein 7.6 g/dL (6.6-8.7) 12/26/24 16:12 Albumin 4.3 g/dL (3.5-5.2) 12/26/24 16:12 Globulin 3.3 g/dL (1.3-4.6) 12/26/24 16:12 HCG, Qual Negative (Negative) 12/26/24 16:12 Salicylates < 0.3 mg/dL (3-10) L 12/26/24 16:12 Urine Opiates Screen Negative ng/mL (Negative) 12/26/24 16:31 Acetaminophen < 5.0 ug/mL (10-30) L 12/26/24 16:12 Ur Barbiturates Screen Negative ng/mL (Negative) 12/26/24 16:31 Ur Phencyclidine Scrn Negative ng/mL (Negative) 12/26/24 16:31 Ur Amphetamines Screen Negative ng/mL (Negative) 12/26/24 16:31 U Benzodiazepines Scrn Negative ng/mL (Negative) 12/26/24 16:31 Urine Cocaine Screen Negative ng/mL (Negative) 12/26/24 16:31 U Marijuana (THC) Screen Negative ng/mL (Negative) 12/26/24 16:31 Ethyl Alcohol 350 mg/dL (0-10) H* 12/26/24 16:12 Serum Ketones Negative (Negative) 12/26/24 16:12 Discharge Plan Discharge Patient Disposition: Home Clinical Impression: Alcohol intoxication Qualifiers: Complication of substance-induced condition: with delirium Qualified Code(s): F 10.921 - Alcohol use, unspecified with intoxication delirium Diabetes mellitus with hyperglycemia Qualifiers: Diabetes mellitus type: type 2 Diabetes mellitus terminal supervisor insulin use: with nursing home use Qualified Code(s): E11.65 - Type 2 diabetes mellitus with hyperglycemia Condition: Stable Prescriptions: New chlordiazepoxide HCl 10 mg capsule 10 mg PO BID PRN (Reason: anxiety) Qty: 14 0RF No Action atenolol 50 mg tablet 50 mg PO DAILY gabapentin 600 mg tablet 600 mg PO TID clotrimazole-betamethasone 1-0.05 % cream 1 applic topical BID 28 Days Qty: 15 0RF atorvastatin 10 mg tablet 10 mg PO DAILY lisinopril 2.5 mg tablet 2.5 mg PO DAILY insulin lispro [Humalog KwikPen Insulin] 100 unit/mL insulin pen See Rx Instructions .ROUTE .COMPLEX Rx Instructions: inject ;sq; per sliding scale daily with mealsmax daily of 30 units insulin glargine [Lantus Solostar U-100 Insulin] 100 unit/mL (3 mL) insulin pen 25 unit SUBCUT DAILY clonidine HCl 0.1 mg Tablet 0.1 mg PO TID 30 Days Qty: 90 1RF cetirizine 10 mg Tablet 10 mg PO DAILY 30 Days Qty: 30 1RF magnesium oxide 400 mg (241.3 mg magnesium) Tablet 400 mg PO BID 30 Days Qty: 60 1RF bupropion HCl 150 mg Tablet Extended Release 24 Hr 150 mg PO DAILY 30 Days Qty: 30 1RF quetiapine 25 mg Tablet 50 mg PO BEDTIME 30 Days Qty: 60 1RF potassium chloride [Klor-Con M20] 20 mEq Tablet,Er Particles/Crystals 40 meq PO DAILY 30 Days Qty: 60 1RF thiamine mononitrate (vit B1) [Vitamin B-1 (mononitrate)] 100 mg Tablet 100 mg PO DAILY 30 Days Qty: 30 1RF olanzapine 5 mg Tablet,Disintegrating 5 mg PO DAILY PRN (Reason: Agitation) 30 Days Qty: 30 1RF Discharge Orders: Discharge ED (Routine); Ordered 12/26/24 Ordered By: Marek Ferguson Patient Instructions: Alcohol Intoxication (ED) Activity Restrictions/Additional Instructions: Chlordiazepoxide as prescribed. Please do not drink any alcohol while taking this medication. Please follow-up with your previously established resources for alcohol. Please keep a close monitor of your blood sugar at home and take your other medications as prescribed. Return with any new or worsening. Print Language: Ethiopian Sign Out Sign Out Data: Patient Sign Out occurred on 12/26/24 at 16:19. Patient's care was discussed, and care was transferred from WAQAR Ulrich to WAQAR Reyna. Coding Level of Care Code ED Adjunct Faculty For Medical Terminology for Chg Fwd Documented by User: Antonio Moore DO 12/26/24 18:35 HPI - General Adult 2 General: Chief complaint: Recheck/Abnormal Lab/Rx Stated complaint: hyperglycemia Time Seen by Provider: 12/26/24 15:31 Related Data Home Medications ?Medication ?Instructions ?Recorded ?Confirmed atenolol 50 mg tablet 50 mg PO DAILY 04/19/2109/20 gabapentin 600 mg tablet 600 mg PO TID 04/19/2110/15 atorvastatin 10 mg tablet 10 mg PO DAILY 09/19/2409/20 insulin glargine 100 unit/mL (3 25 unit SUBCUT DAILY 1 11/19/23 10/15/24 mL) subcutaneous pen (Lantus Solostar U-100 Insulin) insulin lispro 100 unit/mL See Rx Instructions .Route .COMPLEX 09/19/24 10/15/24 subcutaneous pen (Humalog KwikPen (U-100) Insulin) lisinopril 2.5 mg tablet 2.5 mg PO DAILY 09/19/24 Previous Rx's ?Medication ?Instructions ?Recorded bupropion HCl 150 mg 24 hr tablet, 150 mg PO DAILY 30 days #30 tabs 09/24/24 extended release cetirizine 10 mg tablet 10 mg PO DAILY 30 days #30 t abs 09/24/24 clonidine HCl 0.1 mg tablet 0.1 mg PO TID 30 days #90 tabs 09/24/24 magnesium oxide 400 mg (241.3 mg 400 mg PO BID 30 days #60 tabs 09/24/24 magnesium) tablet olanzapine 5 mg disintegrating 5 mg PO DAILY PRN Agita tion 30 09/24/24 tablet days #30 tabs potassium chloride 20 mEq 40 meq (2 x 20 mEq) PO DAILY 30 09/24/24 tablet,extended days #60 tabs release(part/cryst) (Klor-Con M) quetiapine 25 mg tablet 50 mg (2 x 25 mg) PO BEDTIME 30 09/24/24 days #60 tabs thiamine mononitrate (vit B1) 100 100 mg PO DAILY 30 d ays #30 tabs 09/24/24 mg tablet (Vitamin B-1 (mononitrate)) clotrimazole-betamethasone 1 1 applic topical BID 4 we eks #15 10/15/24 %-0.05 % topical cream grams chlordiazepoxide HCl 10 mg capsule 10 mg PO BID PRN an xiety #14 caps 12/26/24 Allergies Allergy/AdvReac Type Severity Reaction Status Date / Time No Known Allergies Allergy Verified 12/26/24 15:40 PFSH ED 2 PFSH: Medical History Hepatitis C Type 4 with normal LFTs. Social History Smoking and tobacco/nicotine status: unknown if used tobacco/nicotine Alcohol intake: current Alcohol intake frequency: holidays/special occasions only Adopted: No Marital status: Single Number of children: 1 service: No Physical Exam 2 Neuro: RENNY COMA SCALE: document GCS findings [place] coma scale total score: 15 Course 2 Vital Signs: Vital signs: Vital Signs Temperature 98.4 F 12/26/24 15:35 Pulse Rate 90 12/26/24 18:00 Respiratory Rate 16 12/26/24 18:00 Blood Pressure 125/86 12/26/24 18:00 Pulse Oximetry 93 12/26/24 18:00 Oxygen Delivery Me thod Room Air 12/26/24 18:00 [facility] - General Adult Lab Data 12/26/24 16:12 12/26/24 16:12 Laboratory Results WBC 9.30 10^3/uL (3.29-11.43) 12/26/24 16:12 RBC 4.73 10^6/uL (3.85-5.65) 12/26/24 16:12 Hgb 14.00 g/dL (11.27-16.99) 12/26/24 16:12 Hct 40.8 % (36-47) 12/26/24 16:12 MCV 86.3 fl (85-98) 12/26/24 16:12 MCH 29.6 pg (27-33) 12/26/24 16:12 MCHC 34.3 g/dL (30-55) 12/26/24 16:12 RDW 13.3 % (12.1-15.1) 12/26/24 16:12 Plt Count 181 10^3/cmm (157-399) 12/26/24 16:12 MPV 10.5 fL (7.4-10.4) H 12/26/24 16:12 Neut % (Auto) 68.6 % 12/26/24 16:12 Lymph % (Auto) 24.1 % 12/26/24 16:12 [place] % (Auto) 6.1 % 12/26/24 16:12 Eos % (Auto) 0.4 % 12/26/24 16:12 Baso % (Auto) 0.4 % 12/26/24 16:12 Neut # (Auto) 6.37 10^3/uL (1.8-7.7) 12/26/24 16:12 Lymph # (Auto) 2.2 10^3/uL (0.8-4.8) 12/26/24 16:12 [place] # (Auto) 0.6 10^3/uL (0.2-0.9) 12/26/24 16:12 Eos # (Auto) 0.0 10^3/uL (0.0-0.8) 12/26/24 16:12 Baso # (Auto) 0.0 10^3/uL (0.0-0.1) 12/26/24 16:12 Nucleated RBC % (auto) 0 % 12/26/24 16:12 Nucleated RBCs # 0.0 /100WBC 12/26/24 16:12 Specimen Type Arterial 12/26/24 16:09 Sample Site Radial, right 12/26/24 16:09 ABG pH 7.43 (7.35-7.45) 12/26/24 16:09 ABG pCO2 39.8 mmHg (35-45) 12/26/24 16:09 ABG pO2 76.7 mmHg (80.0-100.0) L 12/26/24 16:09 ABG PO2/FiO2 Ratio 365 12/26/24 16:09 ABG HCO3 26.2 mmol/L (22-26) H 12/26/24 16:09 ABG O2 Saturation 95.6 12/26/24 16:09 ABG Base Excess 1.8 mmol/L (-2.0-2.0) 12/26/24 16:09 Ej Test Pos 12/26/24 16:09 A-a O2 Gradient 3.1 mmHg (5-10) L 12/26/24 16:09 Hematocrit 44.7 % (37-47) 12/26/24 16:09 Hgb O2 Saturation 92.2 % (95-100) L 12/26/24 16:09 Carboxyhemoglobin 3.5 %THgb (0.4-20.1) 12/26/24 16:09 Methemoglobin 0.2 % (0.4-1.5) L 12/26/24 16:09 Total Hemoglobin 14.6 g/dL (12-16) 12/26/24 16:09 Sodium 143.0 mmol/L (131-143) 12/26/24 16:09 Potassium 3.1 mmol/L (3.5-5.0) L 12/26/24 16:09 Glucose 373.0 mg/dL (70-115) H 12/26/24 16:09 Ionized Calcium 1.1 mmol/L (1.1-1.4) 12/26/24 16:09 O2 Delivery Device Room air 12/26/24 16:09 FiO2 21.0 % 12/26/24 16:09 Mine Engineering Supervisor ID glc 12/26/24 16:09 Sodium 140 mmol/L (136-145) 12/26/24 16:12 Potassium 3.3 mmol/L (3.5-5.1) L 12/26/24 16:12 Chloride 95 mmol/L (98-107) L 12/26/24 16:12 Carbon Dioxide 23 mmol/L (22-29) 12/26/24 16:12 Anion Gap 25.3 (5-19) H 12/26/24 16:12 BUN 9 mg/dL (6-20) 12/26/24 16:12 Creatinine 0.4 mg/dL (0.5-0.9) L 12/26/24 16:12 GFR Calculation 175.0 mL/min (90-130) H 12/26/24 16:12 Glucose 384 mg/dL (65-115) H 12/26/24 16:12 Calculated Osmolality 305 mOsm/kg (285-295) H 12/26/24 16:12 Calcium 9.0 mg/dL (8.5-10.5) 12/26/24 16:12 Magnesium 1.9 mg/dL (1.7-2.3) 12/26/24 16:12 Total Bilirubin 0.4 mg/dL (0.15-1.2) 12/26/24 16:12 AST 140 U/L (0-32) H 12/26/24 16:12 ALT 59 U/L (0-33) H 12/26/24 16:12 Alkaline Phosphatase 177 U/L (35-105) H 12/26/24 16:12 Total Protein 7.6 g/dL (6.6-8.7) 12/26/24 16:12 Albumin 4.3 g/dL (3.5-5.2) 12/26/24 16:12 Globulin 3.3 g/dL (1.3-4.6) 12/26/24 16:12 HCG, Qual Negative (Negative) 12/26/24 16:12 Salicylates < 0.3 mg/dL (3-10) L 12/26/24 16:12 Urine Opiates Screen Negative ng/mL (Negative) 12/26/24 16:31 Acetaminophen < 5.0 ug/mL (10-30) L 12/26/24 16:12 Ur Barbiturates Screen Negative ng/mL (Negative) 12/26/24 16:31 Ur Phencyclidine Scrn Negative ng/mL (Negative) 12/26/24 16:31 Ur Amphetamines Screen Negative ng/mL (Negative) 12/26/24 16:31 U Benzodiazepines Scrn Negative ng/mL (Negative) 12/26/24 16:31 Urine Cocaine Screen Negative ng/mL (Negative) 12/26/24 16:31 U Marijuana (THC) Screen Negative ng/mL (Negative) 12/26/24 16:31 Ethyl Alcohol 350 mg/dL (0-10) H* 12/26/24 16:12 Serum Ketones Negative (Negative) 12/26/24 16:12 Discharge Plan Discharge Patient Disposition: Home Clinical Impression: Alcohol intoxication Qualifiers: Complication of substance-induced condition: with delirium Qualified Code(s): F 10.921 - Alcohol use, unspecified with intoxication delirium Diabetes mellitus with hyperglycemia Qualifiers: Diabetes mellitus type: type 2 Diabetes mellitus nursing home insulin use: with nursing home use Qualified Code(s): E11.65 - Type 2 diabetes mellitus with hyperglycemia Condition: Stable Prescriptions: New chlordiazepoxide HCl 10 mg capsule 10 mg PO BID PRN (Reason: anxiety) Qty: 14 0RF No Action atenolol 50 mg tablet 50 mg PO DAILY gabapentin 600 mg tablet 600 mg PO TID clotrimazole-betamethasone 1-0.05 % cream 1 applic topical BID 28 Days Qty: 15 0RF atorvastatin 10 mg tablet 10 mg PO DAILY lisinopril 2.5 mg tablet 2.5 mg PO DAILY insulin lispro [Humalog KwikPen Insulin] 100 unit/mL insulin pen See Rx Instructions .ROUTE .COMPLEX Rx Instructions: inject ;sq; per sliding scale daily with mealsmax daily of 30 units insulin glargine [Lantus Solostar U-100 Insulin] 100 unit/mL (3 mL) insulin pen 25 unit SUBCUT DAILY clonidine HCl 0.1 mg Tablet 0.1 mg PO TID 30 Days Qty: 90 1RF cetirizine 10 mg Tablet 10 mg PO DAILY 30 Days Qty: 30 1RF magnesium oxide 400 mg (241.3 mg magnesium) Tablet 400 mg PO BID 30 Days Qty: 60 1RF bupropion HCl 150 mg Tablet Extended Release 24 Hr 150 mg PO DAILY 30 Days Qty: 30 1RF quetiapine 25 mg Tablet 50 mg PO BEDTIME 30 Days Qty: 60 1RF potassium chloride [Klor-Con M20] 20 mEq Tablet,Er Particles/Crystals 40 meq PO DAILY 30 Days Qty: 60 1RF thiamine mononitrate (vit B1) [Vitamin B-1 (mononitrate)] 100 mg Tablet 100 mg PO DAILY 30 Days Qty: 30 1RF olanzapine 5 mg Tablet,Disintegrating 5 mg PO DAILY PRN (Reason: Agitation) 30 Days Qty: 30 1RF Discharge Orders: Discharge ED (Routine); Ordered 12/26/24 Ordered By: Marek Ferguson Patient Instructions: Alcohol Intoxication (ED) Activity Restrictions/Additional Instructions: Chlordiazepoxide as prescribed. Please do not drink any alcohol while taking this medication. Please follow-up with your previously established resources for alcohol. Please keep a close monitor of your blood sugar at home and take your other medications as prescribed. Return with any new or worsening. Print Language: Ethiopian Sign Out Sign Out Data: Patient Sign Out occurred on 12/26/24 at 16:19. Patient's care was discussed, and care was transferred from WAQAR Ulrich to WAQAR Reyna. Coding Level of Care Code ED Adjunct Faculty For Medical Terminology for Chg Fwd Documented by User: WAQAR Reyna 12/26/24 18:41 HPI - General Adult 2 General: Chief complaint: Recheck/Abnormal Lab/Rx Stated complaint: hyperglycemia Time Seen by Provider: 12/26/24 15:31 Related Data Home Medications ?Medication ?Instructions ?Recorded ?Confirmed atenolol 50 mg tablet 50 mg PO DAILY 04/19/2109/20 gabapentin 600 mg tablet 600 mg PO TID 04/19/2110/15 atorvastatin 10 mg tablet 10 mg PO DAILY 09/19/2409/20 insulin glargine 100 unit/mL (3 25 unit SUBCUT DAILY 1 11/19/23 10/15/24 mL) subcutaneous pen (Lantus Solostar U-100 Insulin) insulin lispro 100 unit/mL See Rx Instructions .Route .COMPLEX 09/19/24 10/15/24 subcutaneous pen (Humalog KwikPen (U-100) Insulin) lisinopril 2.5 mg tablet 2.5 mg PO DAILY 09/19/24 Previous Rx's ?Medication ?Instructions ?Recorded bupropion HCl 150 mg 24 hr tablet, 150 mg PO DAILY 30 days #30 tabs 09/24/24 extended release cetirizine 10 mg tablet 10 mg PO DAILY 30 days #30 t abs 09/24/24 clonidine HCl 0.1 mg tablet 0.1 mg PO TID 30 days #90 tabs 09/24/24 magnesium oxide 400 mg (241.3 mg 400 mg PO BID 30 days #60 tabs 09/24/24 magnesium) tablet olanzapine 5 mg disintegrating 5 mg PO DAILY PRN Agita tion 30 09/24/24 tablet days #30 tabs potassium chloride 20 mEq 40 meq (2 x 20 mEq) PO DAILY 30 09/24/24 tablet,extended days #60 tabs release(part/cryst) (Klor-Con M) quetiapine 25 mg tablet 50 mg (2 x 25 mg) PO BEDTIME 30 09/24/24 days #60 tabs thiamine mononitrate (vit B1) 100 100 mg PO DAILY 30 d ays #30 tabs 09/24/24 mg tablet (Vitamin B-1 (mononitrate)) clotrimazole-betamethasone 1 1 applic topical BID 4 we eks #15 10/15/24 %-0.05 % topical cream grams chlordiazepoxide HCl 10 mg capsule 10 mg PO BID PRN an xiety #14 caps 12/26/24 Allergies Allergy/AdvReac Type Severity Reaction Status Date / Time No Known Allergies Allergy Verified 12/26/24 15:40 PFSH ED 2 PFSH: Medical History Hepatitis C Type 4 with normal LFTs. Social History Smoking and tobacco/nicotine status: unknown if used tobacco/nicotine Alcohol intake: current Alcohol intake frequency: holidays/special occasions only Adopted: No Marital status: Single Number of children: 1 service: No Physical Exam 2 Neuro: RENNY COMA SCALE: document GCS findings [place] coma scale total score: 15 Course 2 Vital Signs: Vital signs: Vital Signs Temperature 98.4 F 12/26/24 15:35 Pulse Rate 90 12/26/24 18:00 Respiratory Rate 16 12/26/24 18:00 Blood Pressure 125/86 12/26/24 18:00 Pulse Oximetry 93 12/26/24 18:00 Oxygen Delivery Wi thod Room Air 12/26/24 18:00 MDM - General Adult Medical Decision Making Care of patient transferred to [place] at shift change by WAQAR Ulrich. Patient presented by ambulance for acute intoxication, history of DKA was seen here multiple times in the past for same issue. She was endorsing hallucinations on arrival, alcohol found to be 350. After period of monitoring she was rechecked and no longer endorsing hallucinations and likely this was a result of being intoxicated. States to me that she normally drinks unknown amount of shooters every day, but is actively wanting to quit. She does state that she has resources as an outpatient, is unsure why she picked up drinking again. She started to complain of shakes during administration of IV fluids, was given Ativan and also given thiamine. Her ABG was unremarkable, potassium just mildly low however it has been chronically low and much lower in the past, blood glucose elevated as expected, and basic psychiatric admission labs were obtained with her workup. A couple of hours after being in the ED, she was rechecked stating she was not having any homicidal or suicidal ideations, she has been somewhat more depressed recently as her boyfriend left her and thinks this is why she picked up drinking. However she is adamant that she does not want to come into the hospital for psychiatric reasons and with the way her labs look does not meet in admissions criteria for hospital services. She is stating she wants to go home, however is wanting medications that will help her stop drinking. I informed her she needs to follow-up with her outpatient resources being that she does not want any inpatient resources, and will prescribe Librium to help with alcohol withdrawal. She is comfortable with this plan and does not want any more of the fluids that we have ordered for her. Informed her to continue monitoring her blood sugars closely and to refrain from drinking alcohol at all expense, especially being on the Librium. She verbalized understanding multiple times with being discharged as well as with her return precautions. I did discuss this case with Dr. Moore here in the ED. Lab Data 12/26/24 16:12 12/26/24 16:12 Laboratory Results WBC 9.30 10^3/uL (3.29-11.43) 12/26/24 16:12 RBC 4.73 10^6/uL (3.85-5.65) 12/26/24 16:12 Hgb 14.00 g/dL (11.27-16.99) 12/26/24 16:12 Hct 40.8 % (36-47) 12/26/24 16:12 MCV 86.3 fl (85-98) 12/26/24 16:12 MCH 29.6 pg (27-33) 12/26/24 16:12 MCHC 34.3 g/dL (30-55) 12/26/24 16:12 RDW 13.3 % (12.1-15.1) 12/26/24 16:12 Plt Count 181 10^3/cmm (157-399) 12/26/24 16:12 MPV 10.5 fL (7.4-10.4) H 12/26/24 16:12 Neut % (Auto) 68.6 % 12/26/24 16:12 Lymph % (Auto) 24.1 % 12/26/24 16:12 Linn % (Auto) 6.1 % 12/26/24 16:12 Eos % (Auto) 0.4 % 12/26/24 16:12 Baso % (Auto) 0.4 % 12/26/24 16:12 Neut # (Auto) 6.37 10^3/uL (1.8-7.7) 12/26/24 16:12 Lymph # (Auto) 2.2 10^3/uL (0.8-4.8) 12/26/24 16:12 Linn # (Auto) 0.6 10^3/uL (0.2-0.9) 12/26/24 16:12 Eos # (Auto) 0.0 10^3/uL (0.0-0.8) 12/26/24 16:12 Baso # (Auto) 0.0 10^3/uL (0.0-0.1) 12/26/24 16:12 Nucleated RBC % (auto) 0 % 12/26/24 16:12 Nucleated RBCs # 0.0 /100WBC 12/26/24 16:12 Specimen Type Arterial 12/26/24 16:09 Sample Site Radial, right 12/26/24 16:09 ABG pH 7.43 (7.35-7.45) 12/26/24 16:09 ABG pCO2 39.8 mmHg (35-45) 12/26/24 16:09 ABG pO2 76.7 mmHg (80.0-100.0) L 12/26/24 16:09 ABG PO2/FiO2 Ratio 365 12/26/24 16:09 ABG HCO3 26.2 mmol/L (22-26) H 12/26/24 16:09 ABG O2 Saturation 95.6 12/26/24 16:09 ABG Base Excess 1.8 mmol/L (-2.0-2.0) 12/26/24 16:09 Ej Test Pos 12/26/24 16:09 A-a O2 Gradient 3.1 mmHg (5-10) L 12/26/24 16:09 Hematocrit 44.7 % (37-47) 12/26/24 16:09 Hgb O2 Saturation 92.2 % (95-100) L 12/26/24 16:09 Carboxyhemoglobin 3.5 %THgb (0.4-20.1) 12/26/24 16:09 Methemoglobin 0.2 % (0.4-1.5) L 12/26/24 16:09 Total Hemoglobin 14.6 g/dL (12-16) 12/26/24 16:09 Sodium 143.0 mmol/L (131-143) 12/26/24 16:09 Potassium 3.1 mmol/L (3.5-5.0) L 12/26/24 16:09 Glucose 373.0 mg/dL (70-115) H 12/26/24 16:09 Ionized Calcium 1.1 mmol/L (1.1-1.4) 12/26/24 16:09 O2 Delivery Device Room air 12/26/24 16:09 FiO2 21.0 % 12/26/24 16:09 Mine Engineering Supervisor ID [email or web address] 12/26/24 16:09 Sodium 140 mmol/L (136-145) 12/26/24 16:12 Potassium 3.3 mmol/L (3.5-5.1) L 12/26/24 16:12 Chloride 95 mmol/L (98-107) L 12/26/24 16:12 Carbon Dioxide 23 mmol/L (22-29) 12/26/24 16:12 Anion Gap 25.3 (5-19) H 12/26/24 16:12 BUN 9 mg/dL (6-20) 12/26/24 16:12 Creatinine 0.4 mg/dL (0.5-0.9) L 12/26/24 16:12 GFR Calculation 175.0 mL/min (90-130) H 12/26/24 16:12 Glucose 384 mg/dL (65-115) H 12/26/24 16:12 Calculated Osmolality 305 mOsm/kg (285-295) H 12/26/24 16:12 Calcium 9.0 mg/dL (8.5-10.5) 12/26/24 16:12 Magnesium 1.9 mg/dL (1.7-2.3) 12/26/24 16:12 Total Bilirubin 0.4 mg/dL (0.15-1.2) 12/26/24 16:12 AST 140 U/L (0-32) H 12/26/24 16:12 ALT 59 U/L (0-33) H 12/26/24 16:12 Alkaline Phosphatase 177 U/L (35-105) H 12/26/24 16:12 Total Protein 7.6 g/dL (6.6-8.7) 12/26/24 16:12 Albumin 4.3 g/dL (3.5-5.2) 12/26/24 16:12 Globulin 3.3 g/dL (1.3-4.6) 12/26/24 16:12 HCG, Qual Negative (Negative) 12/26/24 16:12 Salicylates < 0.3 mg/dL (3-10) L 12/26/24 16:12 Urine Opiates Screen Negative ng/mL (Negative) 12/26/24 16:31 Acetaminophen < 5.0 ug/mL (10-30) L 12/26/24 16:12 Ur Barbiturates Screen Negative ng/mL (Negative) 12/26/24 16:31 Ur Phencyclidine Scrn Negative ng/mL (Negative) 12/26/24 16:31 Ur Amphetamines Screen Negative ng/mL (Negative) 12/26/24 16:31 U Benzodiazepines Scrn Negative ng/mL (Negative) 12/26/24 16:31 Urine Cocaine Screen Negative ng/mL (Negative) 12/26/24 16:31 U Marijuana (THC) Screen Negative ng/mL (Negative) 12/26/24 16:31 Ethyl Alcohol 350 mg/dL (0-10) H* 12/26/24 16:12 Serum Ketones Negative (Negative) 12/26/24 16:12 No radiology studies performed this visit Discharge Plan Discharge Patient Disposition: Home Clinical Impression: Alcohol intoxication Qualifiers: Complication of substance-induced condition: with delirium Qualified Code(s): F 10.921 - Alcohol use, unspecified with intoxication delirium Diabetes mellitus with hyperglycemia Qualifiers: Diabetes mellitus type: type 2 Diabetes mellitus terminal supervisor insulin use: with terminal supervisor use Qualified Code(s): E11.65 - Type 2 diabetes mellitus with hyperglycemia Condition: Stable Prescriptions: New chlordiazepoxide HCl 10 mg capsule 10 mg PO BID PRN (Reason: anxiety) Qty: 14 0RF No Action atenolol 50 mg tablet 50 mg PO DAILY gabapentin 600 mg tablet 600 mg PO TID clotrimazole-betamethasone 1-0.05 % cream 1 applic topical BID 28 Days Qty: 15 0RF atorvastatin 10 mg tablet 10 mg PO DAILY lisinopril 2.5 mg tablet 2.5 mg PO DAILY insulin lispro [Humalog KwikPen Insulin] 100 unit/mL insulin pen See Rx Instructions .ROUTE .COMPLEX Rx Instructions: inject ;sq; per sliding scale daily with mealsmax daily of 30 units insulin glargine [Lantus Solostar U-100 Insulin] 100 unit/mL (3 mL) insulin pen 25 unit SUBCUT DAILY clonidine HCl 0.1 mg Tablet 0.1 mg PO TID 30 Days Qty: 90 1RF cetirizine 10 mg Tablet 10 mg PO DAILY 30 Days Qty: 30 1RF magnesium oxide 400 mg (241.3 mg magnesium) Tablet 400 mg PO BID 30 Days Qty: 60 1RF bupropion HCl 150 mg Tablet Extended Release 24 Hr 150 mg PO DAILY 30 Days Qty: 30 1RF quetiapine 25 mg Tablet 50 mg PO BEDTIME 30 Days Qty: 60 1RF potassium chloride [Klor-Con M20] 20 mEq Tablet,Er Particles/Crystals 40 meq PO DAILY 30 Days Qty: 60 1RF thiamine mononitrate (vit B1) [Vitamin B-1 (mononitrate)] 100 mg Tablet 100 mg PO DAILY 30 Days Qty: 30 1RF olanzapine 5 mg Tablet,Disintegrating 5 mg PO DAILY PRN (Reason: Agitation) 30 Days Qty: 30 1RF Discharge Orders: Discharge ED (Routine); Ordered 12/26/24 Ordered By: Marek Ferguson Patient Instructions: Alcohol Intoxication (ED) Activity Restrictions/Additional Instructions: Chlordiazepoxide as prescribed. Please do not drink any alcohol while taking this medication. Please follow-up with your previously established resources for alcohol. Please keep a close monitor of your blood sugar at home and take your other medications as prescribed. Return with any new or worsening. Print Language: Ethiopian Sign Out Sign Out Data: Patient Sign Out occurred on 12/26/24 at 16:19. Patient's care was discussed, and care was transferred from WAQAR Ulrich to WAQAR Reyna. Coding Level of Care Code ED [employer] for [employer] Champion
[2024-12-26 16:19] LABS: Basophils % 0.4 %; Eosinophils % 0.4 %; Hematocrit 40.8 % (36-47); Lymphocytes # 2.2 10^3/uL (0.8-4.8); Lymphocytes % 24.1 %; Mean Corpuscular HGB Conc 34.3 g/dL (30-55); Mean Corpuscular Hemoglobin 29.6 pg (27-33); Mean Corpuscular Volume 86.3 fl (85-98); Mean Platelet Volume 10.5 fL (7.4-10.4); Monocytes # 0.6 10^3/uL (0.2-0.9); Monocytes % 6.1 %; Neutrophils # 6.37 10^3/uL (1.8-7.7); Neutrophils % 68.6 %; Nucleated Red Blood Cells % 0 %; Platelet Count 181 10^3/cmm (157-399); Red Blood Count 4.73 10^6/uL (3.85-5.65); Red Cell Distribution Width 13.3 % (12.1-15.1)
[2024-12-26 16:20] LABS: ABG PCO2 39.8 mmHg (35-45); ABG PH Result 7.43 (7.35-7.45); Alveolar-Arterial Oxygen Gradi 3.1 mmHg (5-10); Arterial Blood Gas Hematocrit 44.7 % (37-47); Base Excess ABG 1.8 mmol/L (-2.0-2.0); Blood Gas Allen Test Pos; Blood Gas Operator Identificat glc; Blood Gas Sample Site Radial, right; Blood Gas Sample Type Arterial; Carboxyhemoglobin 3.5 %THgb (0.4-20.1); HCO3 ABG 26.2 mmol/L (22-26); HGB O2 Sat 92.2 % (95-100); Ionized Calcium Level - ABG 1.1 mmol/L (1.1-1.4); Methemoglobin 0.2 % (0.4-1.5); Oxygen Device ROOM AIR; Oxygen Saturation ABG 95.6; PO2 ABG 76.7 mmHg (80.0-100.0); PO2 FiO2 Ratio Arterial Blood 365; Potassium Level - ABG 3.1 mmol/L (3.5-5.0); Total Hemoglobin 14.6 g/dL (12-16)
[2024-12-26 16:26] VITALS: BP 150/123; PULSE 66; RESP 16; O2SAT 94
[2024-12-26 16:32] LABS: HCG, Serum Qual Negative (Negative); Ketone (Acetest) Serum Negative (Negative)
[2024-12-26] MEDS: sodium chloride 0.9% 1,000 ML 999 ML IV (16:36)
[2024-12-26 16:41] LABS: Alanine Aminotransferase 59 U/L (0-33); Albumin Level 4.3 g/dL (3.5-5.2); Alkaline Phosphatase 177 U/L (35-105); Anion Gap 25.3 (5-19); Aspartate Amino Transferase 140 U/L (0-32); Blood Urea Nitrogen 9 mg/dL (6-20); Carbon Dioxide 23 mmol/L (22-29); Chloride 95 mmol/L (98-107); Creatinine Clr Calc Pharmacy 167.1403; Globulin 3.3 g/dL (1.3-4.6); Glucose 384 mg/dL (65-115); Magnesium 1.9 mg/dL (1.7-2.3); Osmolality Calculated 305 mOsm/kg (285-295); Potassium 3.3 mmol/L (3.5-5.1); Sodium 140 mmol/L (136-145); Total Bilirubin 0.4 mg/dL (0.15-1.2); Total Protein 7.6 g/dL (6.6-8.7)
[2024-12-26 16:42] LABS: Acetaminophen < 5.0 ug/mL (10-30); Alcohol Level 350 mg/dL (0-10); Salicylate < 0.3 mg/dL (3-10)
[2024-12-26 16:43] LABS: Amphetamines Screen Urine Negative (Negative); Barbiturates Screen Urine Negative (Negative); Benzodiazepines Screen Urine Negative (Negative); Cocaine Screen Urine Negative (Negative); Opiate Screen Urine Negative (Negative); PCP Screen Urine Negative (Negative); THC Screen Urine Negative (Negative)
[2024-12-26] MEDS: LORazepam 2 mg/mL INJ 1 mL IVP (17:17)
--- NOTE | 2024-12-26 17:45 | PC.NURSE ---
pt refuses to keep monitors on. pt has been asked multiple times to keep them on, but keeps pulling everything off.
[2024-12-26] MEDS: thiamine 100 mg/mL 2mL SDV IVP (17:52)
[2024-12-26 18:00] VITALS: BP 125/86; PULSE 90; RESP 16; O2SAT 93
== END 2024-12-26 19:06 | disposition home or self-care (01) ==
PROVIDERS: Physician Assistant; Emergency Provider Physician Assistant
DX: F10.921 Alcohol use, unspecified with intoxication delirium (principal); E11.65 Type 2 diabetes mellitus with hyperglycemia; Z79.4 Long term (current) use of insulin
CPT/HCPCS: 36415; 80051; 80053; 80306; 80307; 82009; 82330; 82805; 83735; 84703; 85025; 96374; 96375; 99284; J2060; J3411; J7030